=== PATIENT | female | born 1970 | race Caucasian/White ===

== ENCOUNTER 2022-11-04 15:38 | Inpatient (IN) | payer OTHER, MEDICAID, SELFPAY ==
[2022-11-04] VITALS (15 sets, daily range): BP systolic 95–160; BP diastolic 54–91; PULSE 76–86; RESP 16–34; TEMP 37.3; O2SAT 95–100; BMI 43.8
--- NOTE | 2022-11-04 | DI.RAD.S_ITS ---
PROCEDURE: XR FEMUR LT MIN 2V INDICATIONS: left thigh swelling and pain TECHNIQUE: 2 views of the femur were acquired. COMPARISON: [facility], CR, XR KNEE 4+ VIEWS BILATERAL, 12/22/2018, 11:48. [facility], CR, XR TIBIA FIBULA LT 2V, 11/04/2022, 16:32. FINDINGS: Bones: No fractures or dislocations. No suspicious bony lesions. Severe degenerative joint disease in left knee. Soft tissues: No suspicious soft tissue calcifications or masses. Small knee joint effusion. IMPRESSION: 1. No acute osseous abnormalities. 2. Severe degenerative joint disease in left knee and small knee joint effusion. Dictated by: Argelia Ruffin M.D. on 11/04/2022 at 16:41 Approved by: Argelia Ruffin M.D. on 11/04/2022 at 16:46
--- NOTE | 2022-11-04 16:24 | DI.RAD.S_ITS ---
PROCEDURE: XR TIBIA FIBULA LT 2V INDICATIONS: infection? TECHNIQUE: 2 views of the tibia and fibula were acquired. COMPARISON: [facility], CR, XR FEMUR LT MIN 2V, 11/04/2022, 16:32. [facility], CR, XR KNEE 4+ VIEWS BILATERAL, 12/22/2018, 11:48. FINDINGS: Bones: No fractures or dislocations. No suspicious bony lesions. Severe knee joint degeneration. Soft tissues: No suspicious soft tissue calcifications or masses. Soft tissue swelling. IMPRESSION: No acute osseous abnormalities. Dictated by: Argelia Ruffin M.D. on 11/04/2022 at 16:46 Approved by: Argelia Ruffin M.D. on 11/04/2022 at 16:47
[2022-11-04 17:35] LABS: Add Manual Diff / Slide Review NO; Basophils Absolute Auto 0 /uL (0-100); Basophils Percent Auto 0.3 % (0-2); Eosinophils Absolute Auto 0 /uL (0-450); Eosinophils Percent Auto 0.1 % (2-4); Hematocrit 35.1 % (36-46); INR 1.1 (0.9-1.3); Lymphocytes Absolute Auto 400 /uL (1100-4500); Lymphocytes Percent Auto 6.5 % (25-40); Mean Corpuscular HGB Conc 34.3 % (30-36); Mean Corpuscular Hemoglobin 35.3 PG (26-34); Mean Corpuscular Volume 102.8 fL (80-100); Monocytes Absolute Auto 400 /uL (0-900); Monocytes Percent Auto 6.5 % (3-14); Neutrophils Absolute Auto 4900 /uL (1500-7000); Neutrophils Percent Auto 86.6 % (50-75); Platelet Count 111 X10^3/uL (150-400); Prothrombin Time 12.9 SECONDS (10.1-12.7); Red Blood Cell Count 3.41 X10^6/uL (4.0-5.2); White Blood Cell Count 5.7 X10^3/uL (4.5-11.0)
[2022-11-04 17:38] LABS: PTT Partial Thromboplastin Tim 32 SECONDS (26-36)
[2022-11-04 17:40] LABS: Alanine Aminotransferase 42 IU/L (<35); Albumin 3.7 g/dL (3.5-5.0); Albumin Globulin Ratio 0.8 (1.0-2.8); Alkaline Phosphatase 165 U/L (38-126); Aspartate Aminotransferase 66 IU/L (14-36); BUN Creatinine Ratio 22.1 (6-22); Bilirubin Total 2.1 mg/dL (0.2-1.3); Blood Urea Nitrogen 17 mg/dL (7-17); Calcium 8.4 mg/dL (8.4-10.2); Carbon Dioxide 25 mmol/L (22-32); Chloride 92 mmol/L (98-107); Estimated Glomerular Filt Rate > 60 mL/min (>60); Globulin 4.5 g/dL (1.7-4.1); Glucose 302 mg/dL (70-100); HEMOLYSIS < 15 (0-50); Lipase 265 U/L (23-300); Potassium 2.9 mmol/L (3.4-5.1); Sodium 129 mmol/L (137-145); Total Protein 8.2 g/dL (6.3-8.2)
[2022-11-04 17:41] LABS: Lactate (Lactic Acid) 1.6 mmol/L (0.7-2.1)
[2022-11-04] MEDS: ONDANSETRON 4 MG/2 ML INJ IV ×2 (17:41→22:54)
[2022-11-04] MEDS: MORPHINE 4 MG/ML INJ IV (17:41)
--- NOTE | 2022-11-04 18:13 | ED_ITS ---
HPI - Skin/Abscess/Foreign Bdy General Chief complaint: Skin/Abscess/Foreign Body Stated complaint: Swelling, open wound, L leg Time Seen by Provider: 11/04/22 18:01 Source: patient Mode of arrival: Wheelchair History of Present Illness HPI narrative: Patient is a 52-year-old female type 2 diabetes, hypothyroid, rate is, fibromyalgia, chronic back pain presenting today with 3 days of not feeling well and left leg erythema. She has not really been feeling great with decreased appetite for last couple of days. She has chronic wound on her left leg however last night she started noticing some redness today it is extremely painful swo llen red from [id number] all the way up into the thigh. It does not involve the crying. She denies any chest pain, or palpitations. She is a chronic cough from COVID but not coughing anything up it is not any worse. She denies any shortness of breath. Related Data Home Medications Medication Instructions Recorded Confirmed amlodipine 10 mg tablet 10 mg PO DAILY 11/04/22 11/04/22 glimepiride 4 mg tablet 4 mg PO DAILY 11/04/22 11/04/22 metoprolol tartrate 25 mg tablet 25 mg PO BID 11/04/22 11/04/22 Allergies Allergy/AdvReac Type Severity Reaction Status Date / Time No Known Drug Allergies Allergy Verified 11/04/22 17:35 Review of Systems Review of Systems ROS Unobtainable: All systems reviewed & are unremarkable except as noted in HPI and below Patient History Medical History Alcoholism Diabetes type 2, uncontrolled Fibromyalgia Osteoarthritis Surgical History History of bunionectomy History of History of hand surgery Family History Mother Ischemia Alcoholism Aunt Diabetes mellitus Grandfather Stroke Grandmother Dementia Social History household members: significant other and children Smoking Status: Current some day smoker alcohol intake: current Smoking Status: Never smoker alcohol intake frequency: 3 or more drinks per day Substance Use Type: marijuana Exam Initial Vital Signs Initial Vital Signs: Vital Signs Temperature 99.1 F 11/04/22 16:08 Pulse Rate 86 11/04/22 16:08 Respiratory Rate 16 11/04/22 16:08 Blood Pressure 160/91 H 11/04/22 16:08 Pulse Oximetry 99 11/04/22 16:08 Oxygen Delivery Method Room Air 11/04/22 16:08 GENERAL: Alert 52-year-old female appears in pain HEENT: Head atraumatic,EOMI, pupils reactive, face symmetric, [moist] mucous membranes CARDIOVASCULAR: Regular rate and rhythm without murmurs, rubs or gallops. RESPIRATORY: Breath sounds equal bilaterally, no wheezes rales or rhonchi. ABDOMEN: Soft, nontender. Normoactive bowel sounds all 4 quadrants. No guarding or rebound. EXTREMITIES: Normal range of motion, no clubbing or edema. Neurovascularly intact NEUROLOGICAL: Alert and oriented x4. SKIN: Left leg chronic wound dry and scaly however significant erythema over knee and thigh does not involve groin Course Orders Ordered: ED Orders 11/04/22 20:10 COVID19 -Nasal RAPID Stat Acetaminophen (Acetaminophen 325 Mg Tablet) 650 mg PO Q6H PRN PRN Reason: Fever/Mild Pain (1-3) Dextrose (Dextrose 50 % In Water 25 Gm/50 Ml Syringe) 25 gm IV PRN PRN PRN Reason: Hypoglycemia Folic Acid (Folic Acid 1 Mg Tablet) 1 mg PO DAILY [facility] Heparin Sodium (Porcine) (Heparin 5,000 Unit/Ml Vial) 5,000 unit SUBCUT BID KALEB Cefepime HCl 1 gm/ Sodium (Chloride) 100 mls @ 200 mls/hr IV Q12H KALEB Vancomycin HCl/Dextrose (Vancomycin) 2,000 mg in 400 mls @ 200 mls/hr IV Q12H KALEB Thiamine HCl 100 mg/ Sodium (Chloride) 101 mls @ 404 mls/hr IV DAILY [facility] Insulin Human Lispro (Insulin Lispro 100 Unit/Ml 3ml Vial) 0 unit SUBCUT ACHS KALEB; Protocol Lorazepam (Lorazepam 2 Mg/Ml Inj) 0 mg IV CIWAPRN PRN; Protocol PRN Reason: Alcohol Withdrawal Lorazepam (Lorazepam 1 Mg Tablet) 0 mg PO CIWAPRN PRN; Protocol PRN Reason: Alcohol Withdrawal Metoprolol Tartrate (Metoprolol Ir 25 Mg Tablet) 25 mg PO BID [facility] Multivitamins (Multivitamin 1 Tablet) 1 tab PO DAILY [facility] Nystatin (Nystatin Powder 15gm) 1 applic TOP BID PRN PRN Reason: Rash Ondansetron HCl (Ondansetron 4 Mg/2 Ml Inj) 4 mg IV Q8HR PRN PRN Reason: Nausea And Vomiting Last Admin: 11/04/22 22:54 Dose: 4 mg Documented By: ORLANDO Oxycodone HCl (Oxycodone Ir 5 Mg Tablet) 5 mg PO Q4HR PRN PRN Reason: Pain, Moderate (4-6) Last Admin: 11/04/22 22:51 Dose: 5 mg Documented By: ORLANDO Potassium Chloride (Potassium Chloride 20 Meq Tab) 40 meq PO TIDWM [facility] Vancomycin HCl (Vancomycin Per Pharmacy) 1 request MISC NOW ONE Stop: 11/04/22 21:56 Discontinued Medications Hydromorphone HCl (Hydromorphone 1 Mg Inj) 1 mg IV NOW ONE Stop: 11/04/22 18:23 Last Admin: 11/04/22 18:40 Dose: 1 mg Documented By: POLO Sodium Chloride (Normal Saline 0.9%) 1,000 mls @ 1,000 mls/hr IV BOLUS ONE Stop: 11/04/22 17:20 Cefepime HCl 2 gm/ Sodium (Chloride) 100 mls @ 200 mls/hr IV NOW ONE Stop: 11/04/22 18:23 Last Infusion: 11/04/22 19:57 Dose: 0 mls/hr Documented By: Admin: 11/04/22 18:41 Dose: 200 mls/hr Documented By: POLO Vancomycin HCl/Dextrose (Vancomycin) 2,000 mg in 400 mls @ 200 mls/hr IV NOW ONE Stop: 11/04/22 20:24 Last Infusion: 11/04/22 22:00 Dose: 200 mls/hr Documented By: Admin: 11/04/22 19:53 Dose: 200 mls/hr Documented By: SIVAN Sodium Chloride (Normal Saline 0.9%) 1,000 mls @ 150 mls/hr IV CONT KALEB Last Infusion: 11/04/22 22:00 Dose: 150 mls/hr Documented By: Admin: 11/04/22 20:40 Dose: 150 mls/hr Documented By: SIVAN Ketorolac Tromethamine (Ketorolac 30 Mg/Ml Vial) 15 mg IV NOW ONE Stop: 11/04/22 18:23 Last Admin: 11/04/22 18:40 Dose: 15 mg Documented By: NR Morphine Sulfate (Morphine 4 Mg/Ml Inj) 4 mg IV NOW ONE Stop: 11/04/22 17:36 Last Admin: 11/04/22 17:41 Dose: 4 mg Documented By: NR Ondansetron HCl (Ondansetron 4 Mg Odt) 4 mg SL NOW PRN PRN Reason: Nausea And Vomiting Ondansetron HCl (Ondansetron 4 Mg/2 Ml Inj) 4 mg IV NOW PRN PRN Reason: Nausea And Vomiting Last Admin: 11/04/22 17:41 Dose: 4 mg Documented By: NR Potassium Chloride (Potassium Chloride 20 Meq Tab) 40 meq PO NOW ONE Stop: 11/04/22 21:56 Last Admin: 11/04/22 22:50 Dose: 40 meq Documented By: ORLANDO Vital Signs Vital signs: Vital Signs - 8 hr 11/04/22 16:08 Temperature 99.1 F Pulse Rate 86 Respiratory Rate 16 Blood Pressure 160/91 H Pulse Oximetry 99 Oxygen Delivery Method Room Air MDM - Skin/Abscess/Foreign Bdy Lab Data 11/04/22 17:18 11/04/22 17:18 Labs: Lab Results 11/04/22 11/04/22 11/04/22 Range/Units 17:18 17:18 17:18 WBC 5.7 (4.5-11.0) X10^3/uL RBC 3.41 L (4.0-5.2) X10^6/uL Hgb 12.0 (12.0-16.0) g/dL Hct 35.1 L (36-46) % MCV 102.8 H (80-100) fL MCH 35.3 H (26-34) PG MCHC 34.3 (30-36) % RDW 13.0 (11.6-14.8) % Plt Count 111 L (150-400) X10^3/uL Neut % (Auto) 86.6 H (50-75) % Lymph % (Auto) 6.5 L (25-40) % Carter % (Auto) 6.5 (3-14) % Eos % (Auto) 0.1 L (2-4) % Baso % (Auto) 0.3 (0-2) % Neut # (Auto) 4900 (4277-9486) /uL Lymph # (Auto) 400 L (0522-9568) /uL Carter # (Auto) 400 (0-900) /uL Eos # (Auto) 0 (0-450) /uL Baso # (Auto) 0 (0-100) /uL PT 12.9 H (10.1-12.7) SECONDS INR 1.1 (0.9-1.3) APTT 32 (26-36) SECONDS Sodium 129 L (137-145) mmol/L Potassium 2.9 L (3.4-5.1) mmol/L Chloride 92 L (98-107) mmol/L Carbon Dioxide 25 (22-32) mmol/L BUN 17 (7-17) mg/dL Creatinine 0.77 (0.52-1.04) mg/dL Estimated GFR > 60 (>60) mL/min BUN/Creatinine Ratio 22.1 H (6-22) Glucose 302 H (70-100) mg/dL Lactate (0.7-2.1) mmol/L Calcium 8.4 (8.4-10.2) mg/dL Total Bilirubin 2.1 H (0.2-1.3) mg/dL AST 66 H (14-36) IU/L ALT 42 H (<35) IU/L Alkaline Phosphatase 165 H (38-126) U/L Total Protein 8.2 (6.3-8.2) g/dL Albumin 3.7 (3.5-5.0) g/dL Globulin 4.5 H (1.7-4.1) g/dL Albumin/Globulin Ratio 0.8 L (1.0-2.8) Lipase 265 (23-300) U/L Procalcitonin 1.90 H (<0.5) ng/mL SARS-CoV-2 (PCR) (Negative) 11/04/22 11/04/22 Range/Units 17:18 20:10 WBC (4.5-11.0) X10^3/uL RBC (4.0-5.2) X10^6/uL Hgb (12.0-16.0) g/dL Hct (36-46) % MCV (80-100) fL MCH (26-34) PG MCHC (30-36) % RDW (11.6-14.8) % Plt Count (150-400) X10^3/uL Neut % (Auto) (50-75) % Lymph % (Auto) (25-40) % [place] % (Auto) (3-14) % Eos % (Auto) (2-4) % Baso % (Auto) (0-2) % Neut # (Auto) (2986-6259) /uL Lymph # (Auto) (0424-9629) /uL [place] # (Auto) (0-900) /uL Eos # (Auto) (0-450) /uL Baso # (Auto) (0-100) /uL PT (10.1-12.7) SECONDS INR (0.9-1.3) APTT (26-36) SECONDS Sodium (137-145) mmol/L Potassium (3.4-5.1) mmol/L Chloride (98-107) mmol/L Carbon Dioxide (22-32) mmol/L BUN (7-17) mg/dL Creatinine (0.52-1.04) mg/dL Estimated GFR (>60) mL/min BUN/Creatinine Ratio (6-22) Glucose (70-100) mg/dL Lactate 1.6 (0.7-2.1) mmol/L Calcium (8.4-10.2) mg/dL Total Bilirubin (0.2-1.3) mg/dL AST (14-36) IU/L ALT (<35) IU/L Alkaline Phosphatase (38-126) U/L Total Protein (6.3-8.2) g/dL Albumin (3.5-5.0) g/dL Globulin (1.7-4.1) g/dL Albumin/Globulin Ratio (1.0-2.8) Lipase (23-300) U/L Procalcitonin (<0.5) ng/mL SARS-CoV-2 (PCR) Negative (Negative) Imaging Data Extremity x-ray #1: Radiologist's Impression: PROCEDURE:? XR FEMUR LT MIN 2V ? INDICATIONS:? left thigh swelling and pain ? TECHNIQUE:? 2 views of the femur were acquired.? ? COMPARISON:? [facility], CR, XR KNEE 4+ VIEWS BILATERAL, 12/22/2018, 11:48.? [facility], CR, XR TIBIA FIBULA LT 2V, 11/04/2022, 16:32. ? FINDINGS:? ? Bones:? No fractures or dislocations.? No suspicious bony lesions.? Severe degenerative joint disease in left knee. ? Soft tissues:? No suspicious soft tissue calcifications or masses.? Small knee joint effusion. ? IMPRESSION:? ? 1. No acute osseous abnormalities. 2. Severe degenerative joint disease in left knee and small knee joint effusion.? ? Dictated by: Argelia Ruffin M.D. on 11/04/2022 at 16:41 ? ? Extremity x-ray #2: Radiologist's Impression: PROCEDURE:? XR TIBIA FIBULA LT 2V ? INDICATIONS:? infection? ? TECHNIQUE:? 2 views of the tibia and fibula were acquired.? ? COMPARISON:? [facility], CR, XR FEMUR LT MIN 2V, 11/04/2022, 16:32.? [facility], CR, XR KNEE 4+ VIEWS BILATERAL, 12/22/2018, 11:48. ? FINDINGS:? ? Bones:? No fractures or dislocations.? No suspicious bony lesions.? Severe knee joint degeneration. ? Soft tissues:? No suspicious soft tissue calcifications or masses.? Soft tissue swelling. ? IMPRESSION:? No acute osseous abnormalities. ? ? Dictated by: Argelia Ruffin M.D. on 11/04/2022 at 16:46 ?? CT lower extremity: Radiologist's Impression: PROCEDURE:? CT LE LT W CON ? INDICATIONS:? cellulitis ? TECHNIQUE:? After the administration of intravenous contrast, 3 mm axial sections acquired of the left lower extremity, with coronal and sagittal reformatted images. ? ? COMPARISON:? None. ? FINDINGS:? No destructive or lytic or erosive lesion identified in the left lower extremity to suggest osteomyelitis.? No soft tissue organized or rim enhancing fluid collection.? Moderate to large suprapatellar knee joint effusion.? No evidence of fracture or suspicious bone lesion.? Reticular edema throughout the subcutaneous fat of the distal left thigh and left lower leg. ? IMPRESSION:? ? Extensive lower extremity cellulitis which is circumferential below the level of the knee and predominantly anterior/lateral above the level of the knee.? Large s uprapatellar knee joint effusion without lipohemarthrosis to suggest fracture. ? No destructive or erosive or lytic osseous lesion to suggest osteomyelitis. ? No organized or rim enhancing fluid collection identified.? ? Left inguinal lymphadenopathy is presumably related.? ? Dictated by: Curtis Garcia M.D. on 11/04/2022 at 19:21 ? ? [facility] Narrative Medical decision making narrative: Patient 52-year-old diabetic with some chronic left leg wound presenting with new onset cellulitis of left leg. No leukocytosis, but there is elevated prolactin vitals are stable without signs of severe sepsis. There are reported lower blood pressures however nursing staff reports that the cord is twisted and it is not always accurate. Patient is in quite a bit of pain is given pain medication and antibiotics vancomycin and cefepime for cellulitis. CT is negative no evidence of necrotizing fasciitis. Dr. Arteaga Discharge Plan Departure Patient Disposition: Admitted As Inpatient Clinical Impression: Cellulitis Admit Date/Time: 11/04/22 20:56 Admit Provider: Soy Arteaga
--- NOTE | 2022-11-04 18:22 | DI.CT.S_ITS ---
PROCEDURE: CT LE LT W CON INDICATIONS: cellulitis TECHNIQUE: After the administration of intravenous contrast, 3 mm axial sections acquired of the left lower extremity, with coronal and sagittal reformatted images. COMPARISON: None. FINDINGS: No destructive or lytic or erosive lesion identified in the left lower extremity to suggest osteomyelitis. No soft tissue organized or rim enhancing fluid collection. Moderate to large suprapatellar knee joint effusion. No evidence of fracture or suspicious bone lesion. Reticular edema throughout the subcutaneous fat of the distal left thigh and left lower leg. IMPRESSION: Extensive lower extremity cellulitis which is circumferential below the level of the knee and predominantly anterior/lateral above the level of the knee. Large suprapatellar knee joint effusion without lipohemarthrosis to suggest fracture. No destructive or erosive or lytic osseous lesion to suggest osteomyelitis. No organized or rim enhancing fluid collection identified. Left inguinal lymphadenopathy is presumably related. Dictated by: Curtis Garcia M.D. on 11/04/2022 at 19:21 Approved by: Curtis Garcia M.D. on 11/04/2022 at 19:25
[2022-11-04] MEDS: KETOROLAC 30 MG/ML VIAL 15 MG IV (18:40)
[2022-11-04] MEDS: HYDROMORPHONE 1 MG INJ IV (18:40)
[2022-11-04] MEDS: CEFEPIME 2 GM in SODIUM CHLORIDE 0.9% 100 ML IV (18:41)
--- NOTE | 2022-11-04 19:36 | PC.NURSE ---
report received pt lying on left side aao x 3, left leg noted with an area to the lower leg noted scabbed over and the thigh noted red and painful, IV antibiotics infusing call light in reach
[2022-11-04] MEDS: VANCOMYCIN 2,000 MG/400 ML PIGGYBACK 200 MG IV (19:53)
[2022-11-04 20:31] LABS: COVID19 -Nasal RAPID Negative (Negative)
[2022-11-04] MEDS: SODIUM CHLORIDE 0.9% 1,000 ML 150 ML IV (20:40)
--- NOTE | 2022-11-04 21:48 | P.HP_ITS ---
History of Present Illness History of Present Illness Date Patient Seen: 11/04/22 Time Patient Seen: 23:00 Chief complaint: Swelling, open wound, L leg Narrative: Ms. Castellano is a 52W with PMH Type 2 diabetes, EtOH abuse, chronic pain who presents to the hospital with left leg redness. She notes she has a lower leg wound chronically for the last year, this is quite painful. She was diagnosed with cellulitis over a year ago at another hospital. The would appears brawny and scaly. Her left leg is chronically swollen. Over the last day she has noted feeling cold. She has a minimal appetite. She has quite tender erythema above the knee on the inside of the leg. This has been demarcated. In the ED workup was done, vitals notable for afebrile, heart rate in the 80s, o2 sats in the 90s. Labs notable for WBC 5.7, hgb 12.0, platelets 111. Na 129, k 2.9, creatinine 0.77. Bili 2.1, AST/ALT 66/42, alk phos 165. Procal 1.9. Lactate 1.6. Lower extremity CT showed lower extremity cellulitis. She was given antibiotics and fluids and admitted for further treatment. SH: She drinks multiple alcohol drinks a day Patient History Medical History Alcoholism Diabetes type 2, uncontrolled Fibromyalgia Osteoarthritis Surgical History History of bunionectomy History of History of hand surgery Family & Social History Family History Mother Ischemia Alcoholism Aunt Diabetes mellitus Grandfather Stroke Grandmother Dementia Safety & Behavioral: Feels Safe in Current Yes Environment Been Physically Hurt or No Threatened By a Person Tobacco & Substance use: Smoking Status Never smoker alcohol intake frequency 3 or more drinks per day Substance Use Type marijuana Meds Home Medications and Allergies Home Medications Medication Instructions Recorded Confirmed Type amlodipine 10 mg tablet 10 mg PO DAILY 11/04/22 11/04/22 History glimepiride 4 mg tablet 4 mg PO DAILY 11/04/22 11/04/22 History metoprolol tartrate 25 mg tablet 25 mg PO BID 11/04/22 11/04/22 History Allergies Allergy/AdvReac Type Severity Reaction Status Date / Time No Known Drug Allergies Allergy Verified 11/04/22 17:35 Review of Systems Review of Systems Narrative: 14 systems reviewed and negative aside from what is noted in HPI Exam Vital Signs (past 8 hours): - 11/04/22 16:08 11/04/22 17:43 11/04/22 17:44 Temperature 99.1 F Pulse Rate 86 83 Respiratory Rate 16 Blood Pressure 160/91 H 121/59 L Pulse Oximetry 99 100 Oxygen Delivery Method Room Air 11/04/22 17:44 11/04/22 17:45 11/04/22 17:45 Temperature Pulse Rate 84 83 Respiratory Rate Blood Pressure 118/56 L Pulse Oximetry 99 99 Oxygen Delivery Method 11/04/22 18:00 11/04/22 18:00 11/04/22 18:15 Temperature Pulse Rate 80 Respiratory Rate 34 H Blood Pressure 119/59 L 129/59 L Pulse Oximetry 99 Oxygen Delivery Method 11/04/22 18:15 11/04/22 18:30 11/04/22 18:30 Temperature Pulse Rate 82 81 Respiratory Rate 29 H 27 H Blood Pressure 117/57 L Pulse Oximetry 100 99 Oxygen Delivery Method 11/04/22 19:21 11/04/22 19:22 11/04/22 19:22 Temperature Pulse Rate 80 79 Respiratory Rate 22 26 H Blood Pressure 114/58 L Pulse Oximetry 98 97 Oxygen Delivery Method 11/04/22 19:30 11/04/22 19:30 11/04/22 19:45 Temperature Pulse Rate 80 Respiratory Rate 30 H Blood Pressure 102/55 L 102/56 L Pulse Oximetry 97 Oxygen Delivery Method 11/04/22 19:45 11/04/22 20:00 11/04/22 20:00 Temperature Pulse Rate 84 76 Respiratory Rate 23 21 Blood Pressure 95/54 L Pulse Oximetry 96 95 Oxygen Delivery Method 11/04/22 20:30 11/04/22 20:30 Temperature Pulse Rate 76 Respiratory Rate 24 Blood Pressure 111/54 L Pulse Oximetry 98 Oxygen Delivery Method Room Air Oxygen Delivery Method Room Air Narrative Exam Narrative: GEN: no acute distress HEENT: moist mucous membranes, PERRL NECK: trachea midline, no JVD CV: regular rate and rhythm, no murmurs PULM: clear bilaterally, no wheezes, rhonchi, rales ABD: soft, nontender, nondistended, no organomegaly, normal bowel sounds EXT: warm and well perfused, left leg with erythema in the upper leg that extends near the groin, the lower leg is brawny and scaly NEURO: awake, alert, oriented, with no focal deficits Objective Labs 11/04/22 17:18 11/04/22 17:18 Labs: Laboratory Results - last 24 hr 11/04/22 11/04/22 11/04/22 17:18 17:18 17:18 WBC 5.7 RBC 3.41 L Hgb 12.0 Hct 35.1 L MCV 102.8 H MCH 35.3 H MCHC 34.3 RDW 13.0 Plt Count 111 L Neut % (Auto) 86.6 H Lymph % (Auto) 6.5 L [place] % (Auto) 6.5 Eos % (Auto) 0.1 L Baso % (Auto) 0.3 Neut # (Auto) 4900 Lymph # (Auto) 400 L [place] # (Auto) 400 Eos # (Auto) 0 Baso # (Auto) 0 PT 12.9 H INR 1.1 APTT 32 Sodium 129 L Potassium 2.9 L Chloride 92 L Carbon Dioxide 25 BUN 17 Creatinine 0.77 Estimated GFR > 60 BUN/Creatinine Ratio 22.1 H Glucose 302 H Lactate Calcium 8.4 Total Bilirubin 2.1 H AST 66 H ALT 42 H Alkaline Phosphatase 165 H Total Protein 8.2 Albumin 3.7 Globulin 4.5 H Albumin/Globulin Ratio 0.8 L Lipase 265 Procalcitonin 1.90 H SARS-CoV-2 (PCR) 11/04/22 11/04/22 17:18 20:10 WBC RBC Hgb Hct MCV MCH MCHC RDW Plt Count Neut % (Auto) Lymph % (Auto) [place] % (Auto) Eos % (Auto) Baso % (Auto) Neut # (Auto) Lymph # (Auto) [place] # (Auto) Eos # (Auto) Baso # (Auto) PT INR APTT Sodium Potassium Chloride Carbon Dioxide BUN Creatinine Estimated GFR BUN/Creatinine Ratio Glucose Lactate 1.6 Calcium Total Bilirubin AST ALT Alkaline Phosphatase Total Protein Albumin Globulin Albumin/Globulin Ratio Lipase Procalcitonin SARS-CoV-2 (PCR) Negative Assessment & Plan Assessment & Plan narrative: 1. Cellulitis -patient not septic on admission -CT shows no evidence of gas on imaging -as she is diabetic start broadly with vancomycin and cefepime -deescalate antibiotics with improvement 2. Hyponatremia, hypokalemia -suspect secondary to illness and poor appetite vs etoh abuse -received IVF in ED, recheck sodium in AM -ordered for potassium TID, stop when potassium repleted 3. Transaminitis -etiology possible secondary to etoh abuse vs steatosis -trend lfts, if rising may need further workup as inpatient -otherwise will need follow up with PCP 4. Type 2 Diabetes not on insulin -hold oral meds -ordered for insulin sliding scale -check glucose achs 5. Hypertension -continue metoprolol -hold amlodipine for now, and continue if blood pressure rises 6. Chronic pain -tylenol and oxycodone prn 7. Alcohol abuse -feeling withdrawal symptoms on admission -place on CIWA protocol with ativan -ordered MVI, thiamine, folate 8. Chronic lower leg wound -would recommend she follow up with PCP and dermatology for further workup I have discussed the plan with the patient. I have discussed plan of care with ED physician and bedside nurse. I have reviewed the labs and xray and CT imaging. CODE: Full Proxy: Dennis Castellano, spouse Time Spent With Patient Critical Care time: I spent a total of [] minutes of critical care time on this patient's care today; this time is exclusive of procedural time. Quality MIPS - Meds 'Current medications' to include all prescriptions, [id number] products, herbals, cannabis/cannabidiol products, and vitamin/mineral/dietary (nutritional) supplements. I have utilized all available resources to obtain, update, or review the patient?s current medications. [If Yes, STOP here]: Yes
[2022-11-04] MEDS: POTASSIUM CHLORIDE 20 MEQ TAB 40 MEQ PO (22:50)
[2022-11-04] MEDS: OXYCODONE IR 5 MG TABLET PO (22:51)
--- NOTE | 2022-11-04 23:38 | PC.NURSE ---
Patient presents with new onset erythema and petechiae on LLE. Present on dorsal aspect of thigh above knee. Erythema continues around circumference of calf from knee down, fading as it gets to mid calf. [place]win on LLE has a long-standing large area of severely yellowed and thickened skin that has cracked and openly weeping areas. Patient noted to be picking at those areas frequently, educated on ceasing. Both feet are edematous and calloused. Patient reports prior bunionectomy on L great toe. Patient has reddened yeasty areas under both breasts and pannus. Both breasts and underarms and under-breasts have large reddened boils present from bad bra per patient report. None have any noteable pus or drainage visible.
[2022-11-05] VITALS (9 sets, daily range): BP systolic 110–142; BP diastolic 63–73; PULSE 74–82; RESP 16–22; TEMP 36.1–37.6; O2SAT 96–100
[2022-11-05] MEDS: OXYCODONE IR 5 MG TABLET PO ×4 (05:20→22:04)
[2022-11-05] MEDS: ACETAMINOPHEN 325 MG TABLET 650 MG PO ×2 (05:20→20:56)
[2022-11-05] MEDS: CEFEPIME 1 GM in SODIUM CHLORIDE 0.9% 100 ML IV (05:55)
[2022-11-05 06:27] LABS: Add Manual Diff / Slide Review NO; Basophils Absolute Auto 0 /uL (0-100); Basophils Percent Auto 0.5 % (0-2); Eosinophils Absolute Auto 0 /uL (0-450); Eosinophils Percent Auto 0.8 % (2-4); Hematocrit 32.6 % (36-46); Hemoglobin 11.3 g/dL (12.0-16.0); Lymphocytes Absolute Auto 500 /uL (1100-4500); Mean Corpuscular HGB Conc 34.6 % (30-36); Mean Corpuscular Hemoglobin 35.2 PG (26-34); Mean Corpuscular Volume 101.8 fL (80-100); Monocytes Absolute Auto 600 /uL (0-900); Monocytes Percent Auto 11.6 % (3-14); Neutrophils Absolute Auto 4200 /uL (1500-7000); Neutrophils Percent Auto 77.1 % (50-75); Platelet Count 103 X10^3/uL (150-400); Red Cell Distribution Width 13.5 % (11.6-14.8); White Blood Cell Count 5.4 X10^3/uL (4.5-11.0)
[2022-11-05 06:52] LABS: Alanine Aminotransferase 39 IU/L (<35); Albumin 3.3 g/dL (3.5-5.0); Albumin Globulin Ratio 0.8 (1.0-2.8); Alkaline Phosphatase 151 U/L (38-126); Aspartate Aminotransferase 62 IU/L (14-36); Bilirubin Total 1.8 mg/dL (0.2-1.3); Bilirubin Unconjugated 0.5 mg/dL (0.0-1.1); Globulin 4.1 g/dL (1.7-4.1); HEMOLYSIS 44 (0-50); Total Protein 7.4 g/dL (6.3-8.2)
[2022-11-05 06:58] LABS: BUN Creatinine Ratio 23.1 (6-22); Blood Urea Nitrogen 18 mg/dL (7-17); Calcium 8.3 mg/dL (8.4-10.2); Carbon Dioxide 21 mmol/L (22-32); Chloride 94 mmol/L (98-107); Estimated Glomerular Filt Rate > 60 mL/min (>60); Glucose 226 mg/dL (70-100); HEMOLYSIS < 15 (0-50); Potassium 3.3 mmol/L (3.4-5.1); Sodium 126 mmol/L (137-145)
--- NOTE | 2022-11-05 07:50 | P.PN_ITS ---
Exam Vital Signs (past 8 hours): - 11/05/22 01:50 11/05/22 02:00 11/05/22 06:24 Temperature 99.6 F 97.0 F L Pulse Rate 82 76 Respiratory Rate 20 20 Blood Pressure 121/63 123/64 Pulse Oximetry 97 97 97 Oxygen Delivery Method Room Air Oxygen Flow Rate 0 0 11/05/22 06:00 Temperature Pulse Rate Respiratory Rate Blood Pressure Pulse Oximetry 97 Oxygen Delivery Method Room Air Oxygen Flow Rate Oxygen Delivery Method Room Air Oxygen Flow Rate 0 Narrative Exam Narrative: GEN: no acute distress HEENT: moist mucous membranes, PERRL NECK: trachea midline, no JVD CV: regular rate and rhythm, no murmurs PULM: clear bilaterally, no wheezes, rhonchi, rales ABD: soft, nontender, nondistended, no organomegaly, normal bowel sounds EXT: warm and well perfused, left leg with erythema in the upper leg that extends near the groin, the lower leg is brawny and scaly NEURO: awake, alert, oriented, with no focal deficits Objective Labs 11/05/22 05:59 11/05/22 05:59 Labs: Laboratory Results - last 24 hr 11/04/22 11/04/22 11/04/22 17:18 17:18 17:18 WBC 5.7 RBC 3.41 L Hgb 12.0 Hct 35.1 L MCV 102.8 H MCH 35.3 H MCHC 34.3 RDW 13.0 Plt Count 111 L Neut % (Auto) 86.6 H Lymph % (Auto) 6.5 L [place] % (Auto) 6.5 Eos % (Auto) 0.1 L Baso % (Auto) 0.3 Neut # (Auto) 4900 Lymph # (Auto) 400 L [place] # (Auto) 400 Eos # (Auto) 0 Baso # (Auto) 0 PT 12.9 H INR 1.1 APTT 32 Sodium 129 L Potassium 2.9 L Chloride 92 L Carbon Dioxide 25 BUN 17 Creatinine 0.77 Estimated GFR > 60 BUN/Creatinine Ratio 22.1 H Glucose 302 H Lactate Calcium 8.4 Total Bilirubin 2.1 H Conjugated Bilirubin Unconjugated Bilirubin AST 66 H ALT 42 H Alkaline Phosphatase 165 H Total Protein 8.2 Albumin 3.7 Globulin 4.5 H Albumin/Globulin Ratio 0.8 L Lipase 265 Procalcitonin 1.90 H SARS-CoV-2 (PCR) 11/04/22 11/04/22 11/05/22 17:18 20:10 05:59 WBC 5.4 RBC 3.20 L Hgb 11.3 L Hct 32.6 L MCV 101.8 H MCH 35.2 H MCHC 34.6 RDW 13.5 Plt Count 103 L Neut % (Auto) 77.1 H Lymph % (Auto) 10.0 L [place] % (Auto) 11.6 Eos % (Auto) 0.8 L Baso % (Auto) 0.5 Neut # (Auto) 4200 Lymph # (Auto) 500 L [place] # (Auto) 600 Eos # (Auto) 0 Baso # (Auto) 0 PT INR APTT Sodium Potassium Chloride Carbon Dioxide BUN Creatinine Estimated GFR BUN/Creatinine Ratio Glucose Lactate 1.6 Calcium Total Bilirubin Conjugated Bilirubin Unconjugated Bilirubin AST ALT Alkaline Phosphatase Total Protein Albumin Globulin Albumin/Globulin Ratio Lipase Procalcitonin SARS-CoV-2 (PCR) Negative 11/05/22 11/05/22 05:59 05:59 WBC RBC Hgb Hct MCV MCH MCHC RDW Plt Count Neut % (Auto) Lymph % (Auto) [place] % (Auto) Eos % (Auto) Baso % (Auto) Neut # (Auto) Lymph # (Auto) [place] # (Auto) Eos # (Auto) Baso # (Auto) PT INR APTT Sodium 126 L Potassium 3.3 L Chloride 94 L Carbon Dioxide 21 L BUN 18 H Creatinine 0.78 Estimated GFR > 60 BUN/Creatinine Ratio 23.1 H Glucose 226 H Lactate Calcium 8.3 L Total Bilirubin 1.8 H Conjugated Bilirubin 0.0 Unconjugated Bilirubin 0.5 AST 62 H ALT 39 H Alkaline Phosphatase 151 H Total Protein 7.4 Albumin 3.3 L Globulin 4.1 Albumin/Globulin Ratio 0.8 L Lipase Procalcitonin SARS-CoV-2 (PCR) [facility] Medical History Alcoholism Diabetes type 2, uncontrolled Fibromyalgia Osteoarthritis Surgical History History of bunionectomy History of History of hand surgery Family History Mother Ischemia Alcoholism Aunt Diabetes mellitus Grandfather Stroke Grandmother Dementia Social History household members: significant other and children Smoking Status: Current some day smoker alcohol intake: current Assessment & Plan Assessment & Plan narrative: 1. Cellulitis -patient not septic on admission -CT shows no evidence of gas on imaging -as she is diabetic start broadly with vancomycin and cefepime -deescalate antibiotics with improvement 2. Hyponatremia, hypokalemia -suspect secondary to illness and poor appetite vs etoh abuse -received IVF in ED, recheck sodium in AM -ordered for potassium TID, stop when potassium repleted 3. Transaminitis -etiology possible secondary to etoh abuse vs steatosis -trend lfts, if rising may need further workup as inpatient -otherwise will need follow up with PCP 4. Type 2 Diabetes not on insulin -hold oral meds -ordered for insulin sliding scale -check glucose achs 5. Hypertension -continue metoprolol -hold amlodipine for now, and continue if blood pressure rises 6. Chronic pain -tylenol and oxycodone prn 7. Alcohol abuse -feeling withdrawal symptoms on admission -place on CIWA protocol with ativan -ordered MVI, thiamine, folate 8. Chronic lower leg wound -would recommend she follow up with PCP and dermatology for further workup I have discussed the plan with the patient. I have discussed plan of care with ED physician and bedside nurse. I have reviewed the labs and xray and CT imaging. CODE: Full Proxy: Dennis Castellano, spouse Time Spent With Patient Critical Care time: I spent a total of [] minutes of critical care time on this patient's care today; this time is exclusive of procedural time. Quality VTE Deep Vein Thrombosis/Pulmonary Embolism Present on Admission: No
[2022-11-05 08:05] LABS: Magnesium 1.5 mg/dL (1.6-2.3)
[2022-11-05] MEDS: POTASSIUM CHLORIDE 20 MEQ TAB 40 MEQ PO ×3 (08:05→17:09)
[2022-11-05] MEDS: FOLIC ACID 1 MG TABLET PO (08:05)
[2022-11-05] MEDS: MULTIVITAMIN 1 TABLET 1 TAB PO (08:05)
[2022-11-05] MEDS: METOPROLOL IR 25 MG TABLET PO ×2 (08:06→20:57)
[2022-11-05] MEDS: HEPARIN 5,000 UNIT/ML VIAL 5000 UNIT SUBCUT (08:06)
[2022-11-05] MEDS: VANCOMYCIN 1,250 MG/250 ML PIGGYBACK 250 MG IV ×3 (08:06→23:11)
[2022-11-05] MEDS: INSULIN LISPRO 100 UNIT/ML 3ML VIAL SUBCUT ×4 (08:07→20:56)
[2022-11-05] MEDS: INSULIN GLARGINE 100 UNIT/ML 3ML PEN 15 UNIT SUBCUT (08:10)
--- NOTE | 2022-11-05 08:51 | CM.DANOTE ---
DCP: Case received, EMR reviewed and met with patient. Introduced self and role. Was able to obtain information regarding patient's baseline health. DCP assessment completed with information currently available. Patient is a 52 year old female who admitted yesterday evening to the care of the hospitalist team. PCP: Dr. Iyer. Payer: confirmed: [facility] [employer]. Patient came to the hospital via private vehicle secondary to having 3 days of not feeling well, and left leg erythema. Notes indicate that patient had decreased appetite for the last couple of days. Patient has history of type 2 diabetes, ETOH abuse, chronic lower leg wound. Patient was diagnosed with cellulitis, hyponatremia, hypokalemia, transaminitis. Met with patient in her room. She was sitting up in bed having breakfast, left leg exposed, noted redness, peeling to the extremity and scaly. Patient is alert and oriented, and resides in [place] with spouse, Dennis. She has a daughter about 7, who recently went back to school. Patient is independent, she is employed at the [employer]. She indicated that she is the only one working in her household, her spouse is currently unemployed, had been in a recent accident. Confirmed home health would not work for her, since she is not home bound, but is interested in going to outpatient wound clinc, preferably at the wound clinic in [facility]. Asked her about her alcohol consumption, she indicated that she was drinking for chronic pain, but will give it up. P: DCP to continue to follow. Plan is home when stable, may pursue an appointment at the wound clinic in [place] at [facility]. Noni Ronquillo RN/[employer]ant [employer] Qualified Discharge Planning/Care Management CM Discharge Assessment Start: 11/05/22 08:48 Freq: Status: Active Protocol: Document 11/05/22 08:49 (Rec: 11/05/22 08:51 [id number]) Discharge Planning Assessment Assigned [employer] Noni Ronquillo RN/Combatant Diver Qualified Advance Directives? No History Provided By Patient,Medical Record Prior Living Arrangements House Household Members significant other,children Type of transporation used prior to Drives own vehicle admit Independent with ADL's Yes Is patient alert and oriented? Yes Caregiver for Another Yes: Has a 7 year old Comment Wounds, alcohol use Discharge Plan Home Transportation Arrangement Spouse Referrals Initiated Other Additional Comment May consider having patient go over to wound clinic at [facility] Whiteboard Updated in Patient Room with Yes name and ext. # of [employer] Review Status In Process Next Review Type Continued Stay Review
[2022-11-05] MEDS: THIAMINE 100 MG in SODIUM CHLORIDE 0.9% 100 ML 404 MG IV (09:25)
[2022-11-05] MEDS: MAGNESIUM SULFATE 4 GM/100 ML PIGGYBACK IV (09:40)
[2022-11-05] MEDS: NYSTATIN POWDER 15GM 1 APPLIC TOP (10:00)
[2022-11-05 12:31] LABS: Hemoglobin A1C% w Est Avg Glu 9.7 % (4.0-6.0)
--- NOTE | 2022-11-05 13:53 | P.PN_ITS ---
Subjective Subjective Date Patient Seen: 11/05/22 Interval history: 52W with PMH Type 2 diabetes, EtOH abuse,?chronic pain admitted due to severe left lower extremity cellulitis. Patient complains of left leg pain, both chronic and acute from cellulitis. She states appearance of leg is the same. She is on vancomycin and cefepime, increase cefepime dose to 2 g q.12 hours today. Exam Vital Signs (past 8 hours): - 11/05/22 06:24 11/05/22 06:00 11/05/22 07:47 Temperature 97.0 F L Pulse Rate 76 Respiratory Rate 20 Blood Pressure 123/64 Pulse Oximetry 97 97 97 Oxygen Delivery Method Room Air Room Air Oxygen Flow Rate 0 0 11/05/22 10:00 11/05/22 11:00 Temperature 97.1 F L Pulse Rate 76 Respiratory Rate 16 Blood Pressure 120/67 Pulse Oximetry 99 96 Oxygen Delivery Method Room Air Oxygen Flow Rate 0 Oxygen Delivery Method Room Air Oxygen Flow Rate 0 Narrative Exam Narrative: General: Alert and cooperative Lungs: Breathing nonlabored Extremities: There is significant macular erythema of left thigh extending to the upper calf, leg itself is diffusely swollen including the foot, knee is swollen without appearance of a septic arthritis, there is chronic scaly venous stasis changes and superficial wounds of the lower choudhary Neuro: Normal affect, normal speech, not anxious Objective Labs 11/05/22 05:59 11/05/22 05:59 Labs: Laboratory Results - last 24 hr 11/04/22 11/04/22 11/04/22 17:18 17:18 17:18 WBC 5.7 RBC 3.41 L Hgb 12.0 Hct 35.1 L MCV 102.8 H MCH 35.3 H MCHC 34.3 RDW 13.0 Plt Count 111 L Neut % (Auto) 86.6 H Lymph % (Auto) 6.5 L [place] % (Auto) 6.5 Eos % (Auto) 0.1 L Baso % (Auto) 0.3 Neut # (Auto) 4900 Lymph # (Auto) 400 L [place] # (Auto) 400 Eos # (Auto) 0 Baso # (Auto) 0 PT 12.9 H INR 1.1 APTT 32 Sodium 129 L Potassium 2.9 L Chloride 92 L Carbon Dioxide 25 BUN 17 Creatinine 0.77 Estimated GFR > 60 BUN/Creatinine Ratio 22.1 H Glucose 302 H Hemoglobin A1c Lactate Calcium 8.4 Magnesium Total Bilirubin 2.1 H Conjugated Bilirubin Unconjugated Bilirubin AST 66 H ALT 42 H Alkaline Phosphatase 165 H Total Protein 8.2 Albumin 3.7 Globulin 4.5 H Albumin/Globulin Ratio 0.8 L Lipase 265 Procalcitonin 1.90 H SARS-CoV-2 (PCR) 11/04/22 11/04/22 11/05/22 17:18 20:10 05:59 WBC 5.4 RBC 3.20 L Hgb 11.3 L Hct 32.6 L MCV 101.8 H MCH 35.2 H MCHC 34.6 RDW 13.5 Plt Count 103 L Neut % (Auto) 77.1 H Lymph % (Auto) 10.0 L [place] % (Auto) 11.6 Eos % (Auto) 0.8 L Baso % (Auto) 0.5 Neut # (Auto) 4200 Lymph # (Auto) 500 L [place] # (Auto) 600 Eos # (Auto) 0 Baso # (Auto) 0 PT INR APTT Sodium Potassium Chloride Carbon Dioxide BUN Creatinine Estimated GFR BUN/Creatinine Ratio Glucose Hemoglobin A1c Lactate 1.6 Calcium Magnesium Total Bilirubin Conjugated Bilirubin Unconjugated Bilirubin AST ALT Alkaline Phosphatase Total Protein Albumin Globulin Albumin/Globulin Ratio Lipase Procalcitonin SARS-CoV-2 (PCR) Negative 11/05/22 11/05/22 11/05/22 05:59 05:59 05:59 WBC RBC Hgb Hct MCV MCH MCHC RDW Plt Count Neut % (Auto) Lymph % (Auto) [place] % (Auto) Eos % (Auto) Baso % (Auto) Neut # (Auto) Lymph # (Auto) [place] # (Auto) Eos # (Auto) Baso # (Auto) PT INR APTT Sodium 126 L Potassium 3.3 L Chloride 94 L Carbon Dioxide 21 L BUN 18 H Creatinine 0.78 Estimated GFR > 60 BUN/Creatinine Ratio 23.1 H Glucose 226 H Hemoglobin A1c Lactate Calcium 8.3 L Magnesium 1.5 L Total Bilirubin 1.8 H Conjugated Bilirubin 0.0 Unconjugated Bilirubin 0.5 AST 62 H ALT 39 H Alkaline Phosphatase 151 H Total Protein 7.4 Albumin 3.3 L Globulin 4.1 Albumin/Globulin Ratio 0.8 L Lipase Procalcitonin SARS-CoV-2 (PCR) 11/05/22 05:59 WBC RBC Hgb Hct MCV MCH MCHC RDW Plt Count Neut % (Auto) Lymph % (Auto) [place] % (Auto) Eos % (Auto) Baso % (Auto) Neut # (Auto) Lymph # (Auto) [place] # (Auto) Eos # (Auto) Baso # (Auto) PT INR APTT Sodium Potassium Chloride Carbon Dioxide BUN Creatinine Estimated GFR BUN/Creatinine Ratio Glucose Hemoglobin A1c 9.7 H Lactate Calcium Magnesium Total Bilirubin Conjugated Bilirubin Unconjugated Bilirubin AST ALT Alkaline Phosphatase Total Protein Albumin Globulin Albumin/Globulin Ratio Lipase Procalcitonin SARS-CoV-2 (PCR) [facility] Medical History Alcoholism Diabetes type 2, uncontrolled Fibromyalgia Osteoarthritis Surgical History History of bunionectomy History of History of hand surgery Family History Mother Ischemia Alcoholism Aunt Diabetes mellitus Grandfather Stroke Grandmother Dementia Social History household members: significant other and children Smoking Status: Current some day smoker alcohol intake: current Assessment & Plan Assessment & Plan narrative: 1. Cellulitis left lower extremity -patient not septic on admission -CT shows no evidence of gas on imaging -as she is diabetic start broadly with vancomycin and cefepime -deescalate antibiotics with improvement 2. Hyponatremia, hypokalemia, hypomagnesemia -suspect secondary to illness and poor appetite vs chronic etoh abuse -sodium not improved with NS -change fluid restriction to 1500 cc daily as patient unable to tolerate 1000 mL -continue oral potassium repletion as needed -IV Mag sulfate as needed -daily labs to trend 3. Transaminitis -etiology possible secondary to etoh abuse vs steatosis -trend lfts, if rising may need further workup as inpatient -otherwise will need follow up with PCP 4. Type 2 Diabetes not on insulin -hold oral meds -ordered for insulin sliding scale -Lantus 15 units daily -check A1c 5. Hypertension -continue metoprolol -hold amlodipine for now, and continue if blood pressure rises 6. Chronic pain -tylenol and oxycodone prn for acute left leg pain 7. Alcohol abuse -feeling withdrawal symptoms on admission -place on CIWA protocol with ativan, last CIWA 1 -ordered MVI, thiamine, folate 8. Chronic lower leg wound and venous stasis -recommend [facility] Time Spent With Patient Critical Care time: I spent a total of [] minutes of critical care time on this patient's care today; this time is exclusive of procedural time. Quality VTE Deep Vein Thrombosis/Pulmonary Embolism Present on Admission: No
--- NOTE | 2022-11-05 16:51 | DIET.CONS ---
Dietary Consultation Note Admission Date: 11/04/2022 20:56 Assessment: 52 y/o F admitted with cellulitis and chronic lower leg wound. RD consult for T2DM (A1c 9.7). Met with pt at bedside to discuss current dietary intake and DM. Pt notes being diagnosed with DM ~2 yrs ago and went to nutrition classes in [facility] ~1.5 yrs ago. Pt reports chronic 1 yr wound that has worsened. Diet recall: B: premier protein shake OR breakfast sandwich. L: occasionally eats lunch (sometimes protein shake). D: spaghetti OR protein (chicken, steak, salmon, shrimp) with vegetable (brocc, cauliflower) or Caesar salad. S: snacks include nuts or fruit (blueberries). Fluid: ~24 oz water/day. Pt reports not adding any salt to meals, does not drink soda or juice. ETOH: drinks beer to manage pain and sleep. Barriers: pt reports SNAP benefits have dramatically decreased from $700/mo to $200/mo, one vehicle (truck) - gas cost too much. Ht: 170.18 cm Wt: 123.3 kg BMI: 43.8 Last BM: 11/05/22 (11/05/22 11:21) MNA: 14 Chava Score: 23 Diet: 11/04/22 Breakfast Carbohydrate Consistent Diet Diet Modifications: fluid restriction 1.5L per day Carbohydrate level: Medium (3 CHO) Bedtime snack: Yes Labs: RBC 3.20 X10^6/uL (4.0-5.2) L 11/05/22 05:59 Hgb 11.3 g/dL (12.0-16.0) L 11/05/22 05:59 Hct 32.6 % (36-46) L 11/05/22 05:59 Creatinine 0.78 mg/dL (0.52-1.04) 11/05/22 05:59 Hemoglobin A1c 9.7 % (4.0-6.0) H 11/05/22 05:59 Lactate 1.6 mmol/L (0.7-2.1) 11/04/22 17:18 Nutrition Diagnosis: altered nutrition related laboratory values (A1c, glucose) r/t endocrine dysfunction aeb A1c 9.7%, glucose >225 c admission for cellulitis, T2DM diagnosis 2 yrs ago, food insecurity, high ETOH intake, diet recall suggesting high intakes of CHO at dinner and sometimes other meals. Interventions: 1. Educated pt on CHO counting using handout. 2. Recc 15-30 g CHO per snack, 30-45 g CHO per meal and pair with protein for T2DM. 3. Educated pt on vitamins and minerals to support wound healing and provided handout with food sources of each. 4. Offered pt ONS supplement to support protein needs but pt would rather use her fluid allowance daily on ice water at this time. Focus on high nutrient meal options. Monitoring/Evaluations: consult prn. Electronically Signed by: Elissa Beltran 11/05/22 16:[address] [id number]
[2022-11-05] MEDS: CEFEPIME 2 GM in SODIUM CHLORIDE 0.9% 100 ML IV (17:09)
[2022-11-05] MEDS: ENOXAPARIN 40 MG/0.4 ML SYRINGE SUBCUT (20:56)
[2022-11-06] MEDS: CEFEPIME 2 GM in SODIUM CHLORIDE 0.9% 100 ML IV ×2 (06:12→19:04)
[2022-11-06 07:07] LABS: Add Manual Diff / Slide Review NO; Basophils Absolute Auto 0 /uL (0-100); Basophils Percent Auto 0.4 % (0-2); Eosinophils Absolute Auto 100 /uL (0-450); Eosinophils Percent Auto 1.5 % (2-4); Hematocrit 32.3 % (36-46); Hemoglobin 11.1 g/dL (12.0-16.0); Lymphocytes Absolute Auto 600 /uL (1100-4500); Mean Corpuscular HGB Conc 34.4 % (30-36); Mean Corpuscular Hemoglobin 34.8 PG (26-34); Mean Corpuscular Volume 101.4 fL (80-100); Monocytes Absolute Auto 600 /uL (0-900); Monocytes Percent Auto 12.5 % (3-14); Neutrophils Absolute Auto 3200 /uL (1500-7000); Neutrophils Percent Auto 71.6 % (50-75); Platelet Count 104 X10^3/uL (150-400); Red Blood Cell Count 3.18 X10^6/uL (4.0-5.2); Red Cell Distribution Width 12.9 % (11.6-14.8); White Blood Cell Count 4.5 X10^3/uL (4.5-11.0)
--- NOTE | 2022-11-06 07:20 | PM.PN.1 ---
Subjective Subjective Interval history: Exam Vital Signs (past 8 hours): Oxygen Delivery Method Room Air Oxygen Flow Rate 0 Narrative Exam Narrative: General: Alert and cooperative Lungs: Breathing nonlabored Extremities: There is significant macular erythema of left thigh extending to the upper calf, leg itself is diffusely swollen including the foot, knee is swollen without appearance of a septic arthritis, there is chronic scaly venous stasis changes and superficial wounds of the lower choudhary Neuro: Normal affect, normal speech, not anxious Objective Labs 11/06/22 07:00 11/06/22 07:00 Labs: Laboratory Results - last 24 hr 11/05/22 11/05/22 11/06/22 05:59 05:59 07:00 WBC 4.5 RBC 3.18 L Hgb 11.1 L Hct 32.3 L MCV 101.4 H MCH 34.8 H MCHC 34.4 RDW 12.9 Plt Count 104 L Neut % (Auto) 71.6 Lymph % (Auto) 14.0 L [place] % (Auto) 12.5 Eos % (Auto) 1.5 L Baso % (Auto) 0.4 Neut # (Auto) 3200 Lymph # (Auto) 600 L [place] # (Auto) 600 Eos # (Auto) 100 Baso # (Auto) 0 Hemoglobin A1c 9.7 H Magnesium 1.5 L PFSH Medical History Alcoholism Diabetes type 2, uncontrolled Fibromyalgia Osteoarthritis Surgical History History of bunionectomy History of History of hand surgery Family History Mother Ischemia Alcoholism Aunt Diabetes mellitus Grandfather Stroke Grandmother Dementia Social History household members: significant other and children Smoking Status: Current some day smoker alcohol intake: current Assessment & Plan Assessment & Plan narrative: 1. Cellulitis left lower extremity -patient not septic on admission -CT shows no evidence of gas on imaging -as she is diabetic start broadly with vancomycin and cefepime -deescalate antibiotics with improvement 2. Hyponatremia, hypokalemia, hypomagnesemia -suspect secondary to illness and poor appetite vs chronic etoh abuse -sodium not improved with NS -change fluid restriction to 1500 cc daily as patient unable to tolerate 1000 mL -continue oral potassium repletion as needed -IV Mag sulfate as needed -daily labs to trend 3. Transaminitis -etiology possible secondary to etoh abuse vs steatosis -trend lfts, if rising may need further workup as inpatient -otherwise will need follow up with PCP 4. Type 2 Diabetes not on insulin -hold oral meds -ordered for insulin sliding scale -Lantus 15 units daily -check A1c 5. Hypertension -continue metoprolol -hold amlodipine for now, and continue if blood pressure rises 6. Chronic pain -tylenol and oxycodone prn for acute left leg pain 7. Alcohol abuse -feeling withdrawal symptoms on admission -place on CIWA protocol with ativan, last CIWA 1 -ordered MVI, thiamine, folate 8. Chronic lower leg wound and venous stasis -recommend follow-up at [facility] Quality VTE Deep Vein Thrombosis/Pulmonary Embolism Present on Admission: No
[2022-11-06 07:42] LABS: BUN Creatinine Ratio 24.6 (6-22); Blood Urea Nitrogen 17 mg/dL (7-17); Calcium 8.2 mg/dL (8.4-10.2); Carbon Dioxide 21 mmol/L (22-32); Chloride 102 mmol/L (98-107); Estimated Glomerular Filt Rate > 60 mL/min (>60); Glucose 195 mg/dL (70-100); HEMOLYSIS < 15 (0-50); Magnesium 1.9 mg/dL (1.6-2.3); Potassium 3.8 mmol/L (3.4-5.1); Sodium 131 mmol/L (137-145)
[2022-11-06 07:47] LABS: Vancomycin Trough 19.6 ug/mL (10-20)
[2022-11-06] MEDS: VANCOMYCIN 1,250 MG/250 ML PIGGYBACK 250 MG IV (08:10)
[2022-11-06] MEDS: VANCOMYCIN TROUGH 1 REQUEST MISC (08:10)
[2022-11-06] MEDS: INSULIN LISPRO 100 UNIT/ML 3ML VIAL SUBCUT ×4 (08:15→20:13)
[2022-11-06] MEDS: INSULIN GLARGINE 100 UNIT/ML 3ML PEN 15 UNIT SUBCUT (08:17)
[2022-11-06] MEDS: METOPROLOL IR 25 MG TABLET PO ×2 (08:27→20:12)
[2022-11-06] MEDS: FOLIC ACID 1 MG TABLET PO (08:27)
[2022-11-06] MEDS: ENOXAPARIN 40 MG/0.4 ML SYRINGE SUBCUT ×2 (08:27→20:12)
[2022-11-06] MEDS: MULTIVITAMIN 1 TABLET 1 TAB PO (08:28)
[2022-11-06] MEDS: THIAMINE 100 MG in SODIUM CHLORIDE 0.9% 100 ML 404 MG IV (08:28)
[2022-11-06] MEDS: OXYCODONE IR 5 MG TABLET PO ×3 (08:38→20:12)
[2022-11-06] MEDS: ACETAMINOPHEN 325 MG TABLET 650 MG PO (08:40)
[2022-11-06 09:00] VITALS: BP 158/79; PULSE 88; RESP 18; TEMP 36.6; O2SAT 98
--- NOTE | 2022-11-06 11:52 | P.PN_ITS ---
Subjective Subjective Date Patient Seen: 11/06/22 Interval history: 52W with PMH Type 2 diabetes, EtOH abuse,?chronic pain admitted due to severe left lower extremity cellulitis. Pt notes improvement in leg pain and appearance of cellulitis. Exam Vital Signs (past 8 hours): - 11/06/22 09:00 Temperature 97.9 F Pulse Rate 88 Respiratory Rate 18 Blood Pressure 158/79 H Pulse Oximetry 98 Oxygen Flow Rate 0 Oxygen Delivery Method Room Air Oxygen Flow Rate 0 Narrative Exam Narrative: General: alert, pleasant, NAD EXT: decrease in macular erthema of left leg, dec in edema of leg, lower choudhary chronic venous stasis skin changes unchanged Objective Labs 11/06/22 07:00 11/06/22 07:00 Labs: Laboratory Results - last 24 hr 11/05/22 11/06/22 11/06/22 05:59 07:00 07:00 WBC 4.5 RBC 3.18 L Hgb 11.1 L Hct 32.3 L MCV 101.4 H MCH 34.8 H MCHC 34.4 RDW 12.9 Plt Count 104 L Neut % (Auto) 71.6 Lymph % (Auto) 14.0 L [place] % (Auto) 12.5 Eos % (Auto) 1.5 L Baso % (Auto) 0.4 Neut # (Auto) 3200 Lymph # (Auto) 600 L [place] # (Auto) 600 Eos # (Auto) 100 Baso # (Auto) 0 Sodium 131 L Potassium 3.8 Chloride 102 Carbon Dioxide 21 L BUN 17 Creatinine 0.69 Estimated GFR > 60 BUN/Creatinine Ratio 24.6 H Glucose 195 H Hemoglobin A1c 9.7 H Calcium 8.2 L Magnesium 1.9 Vancomycin Trough 11/06/22 07:00 WBC RBC Hgb Hct MCV MCH MCHC RDW Plt Count Neut % (Auto) Lymph % (Auto) [place] % (Auto) Eos % (Auto) Baso % (Auto) Neut # (Auto) Lymph # (Auto) [place] # (Auto) Eos # (Auto) Baso # (Auto) Sodium Potassium Chloride Carbon Dioxide BUN Creatinine Estimated GFR BUN/Creatinine Ratio Glucose Hemoglobin A1c Calcium Magnesium Vancomycin Trough 19.6 PFSH Medical History Alcoholism Diabetes type 2, uncontrolled Fibromyalgia Osteoarthritis Surgical History History of bunionectomy History of History of hand surgery Family History Mother Ischemia Alcoholism Aunt Diabetes mellitus Grandfather Stroke Grandmother Dementia Social History household members: significant other and children Smoking Status: Current some day smoker alcohol intake: current Assessment & Plan Assessment & Plan narrative: 1. Cellulitis left lower extremity, improving -patient not septic on admission -CT shows no evidence of gas on imaging -as she is diabetic started broadly on vancomycin and cefepime -pt needs 1 more day IV abx then send home on oral tomorrow, Thursday consider doxy) -(she had been on cephalexin and Bactrim back in August from [facility]) 2. Hyponatremia, hypokalemia, hypomagnesemia, resolved -suspect secondary chronic etoh abuse -sodium not improved with NS -changed fluid restriction to 1500 cc daily as patient unable to tolerate 1000 mL -continue oral potassium repletion as needed -IV Mag sulfate as needed 3. Transaminitis -etiology possible secondary to etoh abuse vs steatosis -trend lfts, if rising may need further workup as inpatient -otherwise will need follow up with PCP 4. Type 2 Diabetes not on insulin -hold oral meds -ordered for insulin sliding scale -Lantus 15 units daily added in hospital -A1c 9.7 5. Hypertension -continue metoprolol -restarted amlodipine 6. Chronic pain -tylenol and oxycodone prn (hospital only) for acute left leg pain 7. Alcohol abuse -feeling withdrawal symptoms on admission -place on CIWA protocol with ativan, last CIWA 0 -ordered MVI, thiamine, folate -counseled on EtOH cessation 8. Chronic lower leg wound and venous stasis -pt was referred to Wound Care in [place] by PCP for venous stasis Time Spent With Patient Critical Care time: I spent a total of [] minutes of critical care time on this patient's care today; this time is exclusive of procedural time. Quality VTE Deep Vein Thrombosis/Pulmonary Embolism Present on Admission: No
[2022-11-06] MEDS: AMLODIPINE 5 MG TABLET 10 MG PO (13:20)
[2022-11-06] MEDS: VANCOMYCIN 1,000 MG/200 ML PIGGYBACK 200 MG IV (16:09)
[2022-11-06 20:02] VITALS: BP 143/69; PULSE 83; RESP 20; TEMP 37.1; O2SAT 97
[2022-11-06] MEDS: LORazepam 1 MG TABLET PO (20:11)
[2022-11-07] MEDS: VANCOMYCIN 1,000 MG/200 ML PIGGYBACK 200 MG IV ×3 (01:10→16:13)
[2022-11-07 01:48] VITALS: BP 144/70; PULSE 70; RESP 16
[2022-11-07] MEDS: CEFEPIME 2 GM in SODIUM CHLORIDE 0.9% 100 ML IV ×2 (05:58→18:04)
[2022-11-07] MEDS: OXYCODONE IR 5 MG TABLET PO ×4 (06:25→21:22)
[2022-11-07 07:00] VITALS: BP 138/54; PULSE 85; RESP 16; TEMP 36.3; O2SAT 98
[2022-11-07] MEDS: FOLIC ACID 1 MG TABLET PO (10:00)
[2022-11-07] MEDS: AMLODIPINE 5 MG TABLET 10 MG PO (10:00)
[2022-11-07] MEDS: METOPROLOL IR 25 MG TABLET PO ×2 (10:00→21:22)
[2022-11-07] MEDS: ENOXAPARIN 40 MG/0.4 ML SYRINGE SUBCUT ×2 (10:00→21:22)
[2022-11-07] MEDS: MULTIVITAMIN 1 TABLET 1 TAB PO (10:00)
[2022-11-07] MEDS: THIAMINE 100 MG in SODIUM CHLORIDE 0.9% 100 ML 404 MG IV (10:05)
[2022-11-07] MEDS: ACETAMINOPHEN 325 MG TABLET 650 MG PO ×3 (10:12→21:34)
[2022-11-07] MEDS: LIDOCAINE PATCH 1 EACH ADH..PATCH TOP (10:16)
[2022-11-07] MEDS: INSULIN GLARGINE 100 UNIT/ML 3ML PEN 15 UNIT SUBCUT (10:29)
[2022-11-07] MEDS: INSULIN LISPRO 100 UNIT/ML 3ML VIAL SUBCUT ×4 (10:32→21:35)
--- NOTE | 2022-11-07 10:42 | PM.PN.1 ---
Subjective Subjective Interval history: Leg still very red and painful in upper thigh. No chest pain or dyspnea. No withdrawal symptoms. Exam Vital Signs (past 8 hours): Oxygen Delivery Method Room Air Oxygen Flow Rate 0 Narrative Exam Narrative: General: alert, pleasant, NAD Lungs clear, normal effort. Heart is regular, without murmur Distended, and soft. EXT: decrease in macular erthema of left lower leg, she still has a fair amount of erythema and tenderness in the upper thigh as well as pustular rash thigh. Objective Labs 11/06/22 07:00 11/06/22 07:00 [facility] Medical History Alcoholism Diabetes type 2, uncontrolled Fibromyalgia Osteoarthritis Surgical History History of bunionectomy History of History of hand surgery Family History Mother Ischemia Alcoholism Aunt Diabetes mellitus Grandfather Stroke Grandmother Dementia Social History household members: significant other and children Smoking Status: Current some day smoker alcohol intake: current Assessment & Plan Assessment & Plan narrative: [address] [address] Progress Note Patient: Lori Aleman MR#: [id number] : 1970 Acct:[id number] Age/Sex: 52 / F ? Date of Service: 11/04/22 Provider:Ludwig Denton MD Subjective Subjective Date Patient Seen: 11/06/22 Interval history: 52W with PMH Type 2 diabetes, EtOH abuse,?chronic pain admitted due to severe left lower extremity cellulitis. Pt notes improvement in leg pain and appearance of cellulitis. Exam Vital Signs (past 8 hours): - ? 11/06/2308:00 Temperature 97.9 F Pulse Rate 88 Respiratory Rate 18 Blood Pressure 158/79 H Pulse Oximetry 98 Oxygen Flow Rate 0 Oxygen Delivery Method? Room Air? Oxygen Flow Rate? 0 ? Narrative Exam Narrative: General: alert, pleasant, NAD EXT: decrease in macular erthema of left leg, dec in edema of leg, lower choudhary chronic venous stasis skin changes unchanged Objective Labs 11/06/22 07:00? 11/06/22 07:00? Labs: Laboratory Results - last 24 hr ? 11/05/22 11/06/22 11/06/22 ? 05:59 07:00 07:00 WBC ? ?4.5 ? RBC ? ?3.18 L ? Hgb ? ?11.1 L ? Hct ? ?32.3 L ? MCV ? ?101.4 H ? MCH ? ?34.8 H ? MCHC ? ?34.4 ? RDW ? ?12.9 ? Plt Count ? ?104 L ? Neut % (Auto) ? ?71.6 ? Lymph % (Auto) ? ?14.0 L ? Gibson % (Auto) ? ?12.5 ? Eos % (Auto) ? ?1.5 L ? Baso % (Auto) ? ?0.4 ? Neut # (Auto) ? ?3200 ? Lymph # (Auto) ? ?600 L ? Gibson # (Auto) ? ?600 ? Eos # (Auto) ? ?100 ? Baso # (Auto) ? ?0 ? Sodium ? ? ?131 L Potassium ? ? ?3.8 Chloride ? ? ?102 Carbon Dioxide ? ? ?21 L BUN ? ? ?17 Creatinine ? ? ?0.69 Estimated GFR ? ? ?> 60 BUN/Creatinine Ratio ? ? ?24.6 H Glucose ? ? ?195 H Hemoglobin A1c ?9.7 H ? ? Calcium ? ? ?8.2 L Magnesium ? ? ?1.9 Vancomycin Trough ? 11/06/22 ? 07:00 WBC ? RBC ? Hgb ? Hct ? MCV ? MCH ? MCHC ? RDW ? Plt Count ? Neut % (Auto) ? Lymph % (Auto) ? Gibson % (Auto) ? Eos % (Auto) ? Baso % (Auto) ? Neut # (Auto) ? Lymph # (Auto) ? Gibson # (Auto) ? Eos # (Auto) ? Baso # (Auto) ? Sodium ? Potassium ? Chloride ? Carbon Dioxide ? BUN ? Creatinine ? Estimated GFR ? BUN/Creatinine Ratio ? Glucose ? Hemoglobin A1c ? Calcium ? Magnesium ? Vancomycin Trough ?19.6 PFSH Medical History? Alcoholism Diabetes type 2, uncontrolled Fibromyalgia Osteoarthritis Surgical History? History of bunionectomy History of History of hand surgery Family History? Mother Ischemia AlcoholismAunt Diabetes mellitusGrandfather StrokeGrandmother Dementia Social History? household members:? significant other and children Smoking Status:? Current some day smoker alcohol intake:? current Assessment & Plan Assessment & Plan narrative: 1. Cellulitis left lower extremity, present on admission and improving. -patient not septic on admission -CT shows no evidence of gas on imaging -as she is diabetic started broadly on vancomycin and cefepime -pt needs 1 more day IV abx then send home on oral tomorrow, Thursday consider doxy) -(she had been on cephalexin and Bactrim back in August from [facility]) -the upper thighs still quite reddened tender, will extend IV antibiotics for another 24 hours to at least November 08. 2. Hyponatremia, hypokalemia, hypomagnesemia, present on admission and resolved. -suspect secondary chronic etoh abuse -sodium not improved with NS -changed fluid restriction to 1500 cc daily as patient unable to tolerate 1000 mL -continue oral potassium repletion as needed -IV Mag sulfate as needed 3. Transaminitis, present on admission and stable. -etiology possible secondary to etoh abuse vs steatosis -trend lfts, if rising may need further workup as inpatient -otherwise will need follow up with PCP 4. Type 2 Diabetes not on insulin, present on admission and stable. -hold oral meds -ordered for insulin sliding scale -Lantus 15 units daily added in hospital -A1c 9.7 5. Hypertension, present on admission and stable. -continue metoprolol -restarted amlodipine 6. Chronic pain, present on admission and stable. -tylenol and oxycodone prn (hospital only) for acute left leg pain 7. Alcohol abuse, present on admission and improving. -feeling withdrawal symptoms on admission -place on CIWA protocol with ativan, last CIWA 0 -ordered MVI, thiamine, folate -counseled on EtOH cessation -it is her goal to maintain sobriety. 8. Chronic lower leg wound and venous stasis, present on admission and active. -pt was referred to Wound Care in [place] by PCP for venous stasis 9. Morbid obesity, present on admission and active. Quality VTE Deep Vein Thrombosis/Pulmonary Embolism Present on Admission: No
[2022-11-07] MEDS: INSULIN GLARGINE 100 UNIT/ML 3ML PEN SUBCUT (16:11)
[2022-11-07] MEDS: VANCOMYCIN TROUGH 1 REQUEST MISC (16:30)
[2022-11-07 16:32] LABS: Vancomycin Trough 22.3 ug/mL (10-20)
[2022-11-07 19:35] VITALS: BP 131/60; PULSE 74; RESP 18; TEMP 36.5; O2SAT 97
[2022-11-07] MEDS: VANCOMYCIN 1,500 MG/300 ML PIGGYBACK 200 MG IV (23:59)
[2022-11-08] MEDS: CEFEPIME 2 GM in SODIUM CHLORIDE 0.9% 100 ML IV (05:57)
[2022-11-08] MEDS: OXYCODONE IR 5 MG TABLET PO ×5 (06:06→22:20)
[2022-11-08] MEDS: ACETAMINOPHEN 325 MG TABLET 650 MG PO ×3 (06:06→22:20)
[2022-11-08 07:00] VITALS: BP 144/86; PULSE 74; RESP 18; TEMP 36.4; O2SAT 97
[2022-11-08] MEDS: LIDOCAINE PATCH 1 EACH ADH..PATCH TOP (08:15)
[2022-11-08] MEDS: AMLODIPINE 5 MG TABLET 10 MG PO (08:15)
[2022-11-08] MEDS: ENOXAPARIN 40 MG/0.4 ML SYRINGE SUBCUT ×2 (08:15→20:56)
[2022-11-08] MEDS: FOLIC ACID 1 MG TABLET PO (08:15)
[2022-11-08] MEDS: MULTIVITAMIN 1 TABLET 1 TAB PO (08:16)
[2022-11-08] MEDS: METOPROLOL IR 25 MG TABLET PO ×2 (08:16→20:55)
[2022-11-08] MEDS: THIAMINE 100 MG in SODIUM CHLORIDE 0.9% 100 ML 404 MG IV (08:16)
[2022-11-08] MEDS: INSULIN LISPRO 100 UNIT/ML 3ML VIAL SUBCUT ×4 (08:17→21:03)
[2022-11-08] MEDS: INSULIN GLARGINE 100 UNIT/ML 3ML PEN 20 UNIT SUBCUT (08:17)
[2022-11-08] MEDS: PREGABALIN 50 MG CAPSULE PO ×2 (10:26→20:55)
[2022-11-08] MEDS: DOXYCYCLINE HYCLATE 100 MG TABLET PO ×2 (10:26→20:55)
[2022-11-08] MEDS: CEFDINIR 300 MG CAPSULE PO ×2 (10:26→20:55)
--- NOTE | 2022-11-08 10:47 | CM.DPNOTE ---
Discharge Planning Notes: Per hospitalist, he will convert patient to oral antibiotics and most likely discharge tomorrow. Patient is amenable for discharge and will call to let him know for a noon pickup tomorrow. Plan: DC tomorrow per MD if stable, return home to care of spouse. Caryl Pina RN/DCP
--- NOTE | 2022-11-08 16:18 | PM.PN.1 ---
Subjective Subjective Interval history: Leg is improving today, with improved redness but still with pain though that has improved as well. No chest pain or dyspnea. No withdrawal symptoms. Exam Vital Signs (past 8 hours): Oxygen Delivery Method Room Air Oxygen Flow Rate 0 Narrative Exam Narrative: General: alert, pleasant, NAD Lungs clear, normal effort. Heart is regular, without murmur S NT ND EXT: decrease in macular erthema of left lower leg, she still has a fair amount of erythema and tenderness in the upper thigh as well as pustular rash on L thigh. Objective Labs 11/06/22 07:00 11/06/22 07:00 Labs: Laboratory Results - last 24 hr 11/07/22 15:50 Vancomycin Trough 22.3 H* PFSH Medical History Alcoholism Diabetes type 2, uncontrolled Fibromyalgia Osteoarthritis Surgical History History of bunionectomy History of History of hand surgery Family History Mother Ischemia Alcoholism Aunt Diabetes mellitus Grandfather Stroke Grandmother Dementia Social History household members: significant other and children Smoking Status: Current some day smoker alcohol intake: current Assessment & Plan Assessment & Plan narrative: 1. Cellulitis left lower extremity, improving -patient not septic on admission -CT shows no evidence of gas on imaging -as she is diabetic started broadly on vancomycin and cefepime, changed to oral cefdinir and doxycycline today. Will continue to see if there is improvement with transition to oral antibiotics. 2. Hyponatremia, hypokalemia, hypomagnesemia, resolved -suspect secondary chronic etoh abuse -sodium not improved with NS -changed fluid restriction to 1500 cc daily as patient unable to tolerate 1000 mL -continue oral potassium repletion as needed -IV Mag sulfate as needed -improved to 131 yesterday, will repeat again tomorrow. 3. Transaminitis -etiology possible secondary to etoh abuse vs steatosis -slight improvement in LFTs. 4. Type 2 Diabetes not on insulin -hold oral meds -ordered for insulin sliding scale -Lantus daily added in hospital -A1c 9.7 5. Hypertension -continue metoprolol -restarted amlodipine 6. Chronic pain -tylenol and oxycodone prn (hospital only) for acute left leg pain 7. Alcohol abuse -feeling withdrawal symptoms on admission -place on CIWA protocol with ativan, last CIWA 0 -ordered MVI, thiamine, folate -counseled on EtOH cessation 8. Chronic lower leg wound and venous stasis -pt was referred to Wound Care in [place] by PCP for venous stasis Time Spent With Patient Critical Care time: I spent a total of [] minutes of critical care time on this patient's care today; this time is exclusive of procedural time. Quality VTE Deep Vein Thrombosis/Pulmonary Embolism Present on Admission: No
[2022-11-08 19:25] VITALS: BP 130/63; PULSE 71; RESP 18; TEMP 36.7; O2SAT 98
[2022-11-09] MEDS: ACETAMINOPHEN 325 MG TABLET 650 MG PO ×2 (05:06→10:25)
[2022-11-09] MEDS: OXYCODONE IR 5 MG TABLET PO ×2 (05:07→10:26)
[2022-11-09 07:35] VITALS: BP 130/60; PULSE 69; RESP 17; TEMP 36.3; O2SAT 97
[2022-11-09] MEDS: INSULIN LISPRO 100 UNIT/ML 3ML VIAL SUBCUT (07:54)
[2022-11-09] MEDS: LIDOCAINE PATCH 1 EACH ADH..PATCH TOP (08:01)
[2022-11-09] MEDS: AMLODIPINE 5 MG TABLET 10 MG PO (08:01)
[2022-11-09] MEDS: FOLIC ACID 1 MG TABLET PO (08:01)
[2022-11-09] MEDS: ENOXAPARIN 40 MG/0.4 ML SYRINGE SUBCUT (08:01)
[2022-11-09] MEDS: DOXYCYCLINE HYCLATE 100 MG TABLET PO (08:01)
[2022-11-09] MEDS: METOPROLOL IR 25 MG TABLET PO (08:01)
[2022-11-09] MEDS: INSULIN GLARGINE 100 UNIT/ML 3ML PEN 20 UNIT SUBCUT (08:02)
[2022-11-09] MEDS: PREGABALIN 50 MG CAPSULE PO (08:02)
[2022-11-09] MEDS: MULTIVITAMIN 1 TABLET 1 TAB PO (08:02)
[2022-11-09] MEDS: THIAMINE 100 MG in SODIUM CHLORIDE 0.9% 100 ML 404 MG IV (08:14)
[2022-11-09] MEDS: CEFDINIR 300 MG CAPSULE PO (08:14)
[2022-11-09 08:35] LABS: Add Manual Diff / Slide Review NO; Basophils Absolute Auto 0 /uL (0-100); Basophils Percent Auto 0.9 % (0-2); Eosinophils Absolute Auto 100 /uL (0-450); Eosinophils Percent Auto 3.1 % (2-4); Hematocrit 33.1 % (36-46); Hemoglobin 11.4 g/dL (12.0-16.0); Lymphocytes Absolute Auto 800 /uL (1100-4500); Lymphocytes Percent Auto 20.1 % (25-40); Mean Corpuscular HGB Conc 34.4 % (30-36); Mean Corpuscular Hemoglobin 35.3 PG (26-34); Mean Corpuscular Volume 102.6 fL (80-100); Monocytes Absolute Auto 400 /uL (0-900); Monocytes Percent Auto 9.9 % (3-14); Neutrophils Absolute Auto 2500 /uL (1500-7000); Platelet Count 217 X10^3/uL (150-400); Red Blood Cell Count 3.22 X10^6/uL (4.0-5.2); Red Cell Distribution Width 13.3 % (11.6-14.8); White Blood Cell Count 3.9 X10^3/uL (4.5-11.0)
[2022-11-09 08:52] LABS: Blood Urea Nitrogen 11 mg/dL (7-17); Calcium 8.7 mg/dL (8.4-10.2); Carbon Dioxide 22 mmol/L (22-32); Chloride 102 mmol/L (98-107); Estimated Glomerular Filt Rate > 60 mL/min (>60); Glucose 164 mg/dL (70-100); HEMOLYSIS 28 (0-50); Potassium 3.9 mmol/L (3.4-5.1); Sodium 134 mmol/L (137-145)
--- NOTE | 2022-11-09 09:09 | P.DS_ITS ---
History of Present Illness History of Present Illness Date Patient Seen: 11/09/22 Time Patient Seen: 09:10 Chief complaint: Swelling, open wound, L leg Narrative: Per admitting provider, Ms. Castellano is a 52W with PMH Type 2 diabetes, EtOH abuse, chronic pain who presents to the hospital with left leg redness. She notes she has a lower leg wound chronically for the last year, this is quite painful. She was diagnosed with cellulitis over a year ago at another hospital. The would appears brawny and scaly. Her left leg is chronically swollen. Over the last day she has noted feeling cold. She has a minimal appetite. She has quite tender erythema above the knee on the inside of the leg. This has been demarcated. In the ED workup was done, vitals notable for afebrile, heart rate in the 80s, o2 sats in the 90s. Labs notable for WBC 5.7, hgb 12.0, platelets 111. Na 129, k 2.9, creatinine 0.77. Bili 2.1, AST/ALT 66/42, alk phos 165. Procal 1.9. Lactate 1.6. Lower extremity CT showed lower extremity cellulitis. She was given ant ibiotics and fluids and admitted for further treatment. SH: She drinks multiple alcohol drinks a day Discharge Providers Provider Date of admission: 11/04/22 20:56 Discharge Date: 11/09/22 Primary care physician: MASON Segal Consults: 11/04/22 22:31 Consult to Heat Curer Routine Comment: 11/04/22 22:40 Consult to Dietitian, Adult Routine Comment: Reason For Exam: diabetic on a non-diabetic diet Discharge provider: Sunny Hernandez DO Summary Hospital Course Discharge Diagnosis: 1. Cellulitis left lower extremity, improving 2. Hyponatremia, hypokalemia, hypomagnesemia, resolved 3. Transaminitis 4. Type 2 Diabetes 5. Hypertension 6. Chronic pain 7. Alcohol abuse 8. Chronic lower leg wound and venous stasis Hospital Course: This is a 52 year old female with PMH of EtOH abuse, DM2, HTN, chronic venous stasis admitted with a LLE cellulitis. She was initiated on broad antibiotics initially with gradual improvement in her cellulitis. She was transitioned to oral antibiotics with cefdinir and doxycyline with continued improvement. She will continue on oral antibiotics for another 7 days after discharge. She did not show evidence of alcohol withdrawal, but transaminitis present on admission did improve slightly and is at least in part due to a mild alcoholic hepatitis. Her electrolyte abnormalities on admission also improved with repletion. Her glucose levels were not controlled on admission, but had marked improvement on 20 units of lantus. Patient agreeable to discharge home with 20 Units of lantus at the time of discharge. Recommend PCP follow up for continued diabetes managment, and possible wound care referral for her chronic lower leg wounds and venous stasis though I do suspect with improved blood sugars these will heal much more quickly. She was restarted on her home lyrica, this can likely be increased in the coming weeks with PCP and she was given a presciption for continued leg pain with oxycodone as well. Time Spent with Patient Time spent: Greater than 30 minutes Exam Vital Signs (past 8 hours): - 11/09/22 07:35 Temperature 97.4 F L Pulse Rate 69 Respiratory Rate 17 Blood Pressure 130/60 Pulse Oximetry 97 Oxygen Flow Rate 0 Oxygen Delivery Method Room Air Oxygen Flow Rate 0 Narrative Exam Narrative: General: alert, pleasant, NAD Lungs clear, normal effort. Heart is regular, without murmur S NT ND EXT: decrease in macular erthema of left lower leg, and improved appearance of upper leg as well. Objective Labs 11/09/22 08:20 11/09/22 08:20 Labs: Laboratory Results - last 24 hr 11/09/22 11/09/22 08:20 08:20 WBC 3.9 L RBC 3.22 L Hgb 11.4 L Hct 33.1 L MCV 102.6 H MCH 35.3 H MCHC 34.4 RDW 13.3 Plt Count 217 Neut % (Auto) 66.0 Lymph % (Auto) 20.1 L Adams % (Auto) 9.9 Eos % (Auto) 3.1 Baso % (Auto) 0.9 Neut # (Auto) 2500 Lymph # (Auto) 800 L Adams # (Auto) 400 Eos # (Auto) 100 Baso # (Auto) 0 Sodium 134 L Potassium 3.9 Chloride 102 Carbon Dioxide 22 BUN 11 Creatinine 0.55 Estimated GFR > 60 BUN/Creatinine Ratio 20.0 Glucose 164 H Calcium 8.7 PFSH Medical History Alcoholism Diabetes type 2, uncontrolled Fibromyalgia Osteoarthritis Surgical History History of bunionectomy History of History of hand surgery Family History Mother Ischemia Alcoholism Aunt Diabetes mellitus Grandfather Stroke Grandmother Dementia Social History household members: significant other and children Smoking Status: Current some day smoker alcohol intake: current Discharge Plan Discharge Plan Patient Disposition: Home Provider Discharge Comment: You were admitted to the hospital with cellulitis of your legs. This improved with antibiotics, and I have sent another week of antibiotics to continue at home. Some of your medications were changed, notably started on insulin. This was also sent to the pharmacy along with a prescription for a new meter. Please follow up with your PCP as soon as possible to review hospitalization and diabetes management. Discharge orders & Medications Prescriptions: New cefdinir 300 mg Capsule 300 mg PO BID 7 Days Qty: 14 0RF doxycycline hyclate 100 mg Tablet 100 mg PO BID 7 Days Qty: 14 0RF pregabalin [Lyrica] 50 mg Capsule 50 mg PO BID 30 Days Qty: 60 0RF insulin glargine 100 unit/mL (3 mL) insulin pen 20 unit SUBCUT DAILY 60 Days Qty: 15 0RF (DME) pen needle, diabetic [Pen Needle] 31 gauge x 3/16 needle See Rx Instructions .Route Qty: 100 0RF Rx Instructions: For use with insulin pen, one daily (DME) blood-glucose meter [Truetrack Blood Glucose System] Kit See Rx Instructions .Route Qty: 1 0RF Rx Instructions: One glucometer kit (DME) Truetrack Test Strip See Rx Instructions .Route Qty: 200 0RF Rx Instructions: Test strips for glucometer, check at least twice daily oxycodone 5 mg Tablet 5 mg PO Q4HR PRN (Reason: Pain, Moderate (4-6)) 7 Days Qty: 20 0RF Continued amlodipine 10 mg Tablet 10 mg PO DAILY glimepiride 4 mg Tablet 4 mg PO DAILY metoprolol tartrate 25 mg Tablet 25 mg PO BID Follow up/Referrals: Lopez,Renuka S, [facility]GER [Primary Care Provider] - Diet/Activity/Treatments Diet: Diet as Tolerated Activity: As tolerated Visit Report/Discharge Packet Instructions: DI for Cellulitis -- Adult, Insulin Glargine (rDNA origin) Injection Stand Alone Forms: Patient Portal/API, Stroke Signs & Symptoms Discharge Data Primary Care Provider: Renuka Lopez Quality VTE Deep Vein Thrombosis/Pulmonary Embolism Present on Admission: No
--- NOTE | 2022-11-09 11:23 | CM.DPNOTE ---
Discharge Planning Note: Patient discharging now with family, to return home. Caryl Pina RN/DCP
== END 2022-11-09 11:20 | disposition home or self-care (01) | DRG 383 ==
LOC: ED 18:01 → AC 20:57
PROVIDERS: Emergency Medicine; Internal Medicine; Student in an Organized Health Care Education/Training Program; Admitting Provider Internal Medicine; Emergency Provider Emergency Medicine; PCP Nurse Practitioner; Referring Provider Emergency Medicine; Visit Provider Internal Medicine
DX: L03.116 Cellulitis of left lower limb (principal); E87.1 Hypo-osmolality and hyponatremia; E87.6 Hypokalemia; E11.9 Type 2 diabetes mellitus without complications; I10 Essential (primary) hypertension; G89.29 Other chronic pain; E83.42 Hypomagnesemia; I87.8 Other specified disorders of veins; R74.01 Elevation of levels of liver transaminase levels; F10.10 Alcohol abuse, uncomplicated; F17.200 Nicotine dependence, unspecified, uncomplicated; S80.922A Unspecified superficial injury of left lower leg, initial encounter; X58.XXXA Exposure to other specified factors, initial encounter; Z20.822 Contact with and (suspected) exposure to COVID-19; Z79.84 Long term (current) use of oral hypoglycemic drugs
CPT/HCPCS: 36415; 73552; 73590; 73701; 80048; 80053; 80076; 80202; 82962; 83036; 83605; 83690; 83735; 84145; 85025; 85610; 85730; 87040; 87635; 93005; 93010; 96365; 96366; 96367; 96375; 99284; C9803; J0692; J1170; J1644; J1650; J1815; J1885; J2270; J2405; J3475

== ENCOUNTER 2023-09-20 07:36 | Emergency (ER) | payer OTHER, MEDICAID, SELFPAY ==
[2022-11-04 22:21] VITALS: BMI 43.8
[2023-09-20] VITALS (47 sets, daily range): BP systolic 99–148; BP diastolic 52–86; PULSE 104–124; RESP 24–53; TEMP 37.6–38.6; O2SAT 78–99; BMI 43.9
--- NOTE | 2023-09-20 07:44 | DI.RAD.S_ITS ---
PROCEDURE: XR CHEST 1V INDICATIONS: covid + with SOB TECHNIQUE: One view of the chest was acquired. COMPARISON: None. FINDINGS: Surgical changes and devices: None. Lungs and pleura: Possible small left lateral lower lung alveolar opacity. Lungs are otherwise clear. No visible effusion or pneumothorax. Mediastinum: Mediastinal contours appear normal. Heart size is normal. Bones and chest wall: No suspicious bony lesions. Overlying soft tissues appear unremarkable. IMPRESSION: Possible small left lateral lung base opacity. No significant effusion or pneumothorax. Dictated by: Tootie Nash M.D. on 09/20/2023 at 8:41 Approved by: Tootie Nash M.D. on 09/20/2023 at 8:42
--- NOTE | 2023-09-20 08:08 | ED_ITS ---
HPI - General Adult General Chief complaint: Shortness of Breath/Dyspnea Stated complaint: SOB Covid+ Time Seen by Provider: 09/20/23 07:44 Source: patient Mode of arrival: EMS Limitations: no limitations History of Present Illness HPI narrative: Patient is a 53-year-old female. History of insulin-dependent diabetes and hypertension. Arrived by EMS for evaluation of left leg redness and swelling, confusion, shortness of breath. Patient is COVID positive. Per her report she tested positive for COVID approximately 1 week ago although I do not have a specific date as the onset of her symptoms and she does not know exactly what date she was positive. She states that her shortness of breath is actually the same today is what it has been over the past week. She states that her contacted EMS this morning because of her breathing issues and redness and swelling to the left leg. She states that she has had issues with her left leg for ?5 years? her left leg is red and swollen and warm to the touch. There is a large area of eschar in the front of the leg. She has been treated for these issues in the past. She is somewhat of a poor historian. She denies chest pain but states she is generally having body aches. No abdominal pain. No vomiting. Related Data Home Medications Medication Instructions Recorded Confirmed metoprolol tartrate 25 mg tablet 25 mg PO BID 11/04/22 09/20/23 amlodipine 10 mg tablet 10 mg PO DAILY 09/20/23 09/20/23 cyclobenzaprine 10 mg tablet 10 mg PO ONCE PM 09/20/23 09/20/23 furosemide 20 mg tablet 20 mg PO DAILY 09/20/23 09/20/23 glimepiride 4 mg tablet 4 mg PO DAILY 09/20/23 09/20/23 insulin glargine 100 unit/mL (3 20 unit SUBCUT DAILY 09/20/23 09/20/23 mL) subcutaneous pen liraglutide 0.6 mg/0.1 mL (18 mg/3 1.8 mg SUBCUT DAILY 09/20/23 09/20/23 mL) subcutaneous pen injector (Victoza 3-Griffin) meloxicam 15 mg tablet 15 mg PO DAILY 09/20/23 09/20/23 pregabalin 75 mg capsule 75 mg PO 3XD 09/20/23 09/20/23 semaglutide 1 mg/dose (4 mg/3 mL) 1 mg SUBCUT QWEEK 09/20/23 09/20/23 subcutaneous pen injector (Ozempic) Previous Rx's Medication Instructions Recorded blood sugar diagnostic (Truetrack #200 ea 11/09/22 Test strips) blood-glucose meter (Truetrack #1 ea 11/09/22 Blood Glucose System kit) pen needle, diabetic 31 gauge x #100 ea 11/09/2211/06 (Pen Needle) Allergies Allergy/AdvReac Type Severity Reaction Status Date / Time No Known Drug Allergies Allergy Verified 09/20/23 10:30 Review of Systems Review of Systems ROS Unobtainable: All systems reviewed & are unremarkable except as noted in HPI and below Patient History Medical History Osteoarthritis Fibromyalgia Diabetes type 2, uncontrolled Alcoholism Surgical History History of bunionectomy History of History of hand surgery Family History Mother Ischemia Alcoholism Aunt Diabetes mellitus Grandfather Stroke Grandmother Dementia Social History household members: significant other and children Smoking Status: Current some day smoker alcohol intake: current Smoking Status: Current some day smoker alcohol intake frequency: 3 or more drinks per day Substance Use Type: marijuana Exam Initial Vital Signs Initial Vital Signs: Vital Signs Pulse Rate 121 H 09/20/23 07:44 Respiratory Rate 47 H 09/20/23 07:44 Pulse Oximetry 91 09/20/23 07:44 Const General: cooperative, acute distress and ill appearing Nutritional Appearance: overweight [facility] Head: normal to inspection and normocephalic Resp Effort & Inspection: cough, no retractions and tachypneic Auscultation: no rales, no rhonchi and no wheezes Cardio Rate: tachycardic Rhythm: regular rhythm GI Inspection: non-distended Palpation: soft and No tender Skin Other: Patient has a swollen red warm left lower extremity from her toes up to the upper thigh. Is circumferential in the lower leg but anterior on the thigh. She has a large area of eschar on the anterior choudhary. Neuro General: patient alert, patient awake and patient oriented x3 Other: Patient is alert and oriented x3 however does seem somewhat confused about her most recent medical history. Extrem Other: Swollen warm red left lower extremity Scores GCS [place] coma scale eye opening: Spontaneous [place] coma scale verbal response: Orientated [place] coma scale motor response: Obey commands [place] coma scale total score: 15 Course Orders Ordered: ED Orders 09/20/23 07:44 XR chest 1V Stat 09/20/23 07:45 EKG-12 Lead Stat RT Consult Eval and Treat Now 09/20/23 07:46 High flow/High humidity nasal NOW 09/20/23 07:50 Respiratory Panel (Film Array) Stat 09/20/23 08:20 Complete Blood Count AUTO DIFF Stat Comprehensive Metabolic Panel Stat Ketones (Beta-Hydroxybutyrate) Stat Lactate (Lactic Acid) Stat Lipase Stat Magnesium Stat NT-proBNP (BNP-Adult 18+) Stat Pathologist Review (for CBC) Stat Phosphorous Stat Procalcitonin Stat Troponin & CK Cardiac Panel Stat 09/20/23 08:30 Blood Culture Stat 09/20/23 08:48 VBG [Venous Blood Gas] Stat 09/20/23 09:17 US periph venous low extrem lt Stat Arterial Blood Gas Stat 09/20/23 09:22 COVID19 -Nasal RAPID Stat 09/20/23 09:48 Urinalysis and Microscopic Stat Urine Culture Stat 09/20/23 10:25 XR femur RT min 2V Stat XR tibia fibula LT 2V Stat 09/20/23 10:46 Troponin & CK Cardiac Panel Stat Sodium Chloride (Normal Saline 0.9%) 1,000 mls @ 125 mls/hr IV CONT KALEB Last Admin: 09/20/23 09:06 Dose: 125 mls/hr Documented By: RADHA Discontinued Medications Furosemide (Furosemide 40 Mg/4 Ml Vial) 40 mg IV NOW ONE Stop: 09/20/23 09:12 Last Admin: 09/20/23 09:31 Dose: 40 mg Documented By: RADHA Ceftriaxone Sodium 1,000 mg/ (Sodium Chloride) 100 mls @ 200 mls/hr IV NOW ONE Stop: 09/20/23 08:00 Last Infusion: 09/20/23 09:42 Dose: Infused Documented By: Admin: 09/20/23 09:12 Dose: 200 mls/hr Documented By: RADHA Remdesivir 200 mg/ Sodium (Chloride) 250 mls @ 250 mls/hr IV NOW ONE Stop: 09/20/23 09:05 Last Admin: 09/20/23 10:32 Dose: Not Given Documented By: RADHA Vancomycin HCl (Vancomycin) 1,000 mg in 200 mls @ 200 mls/hr IV NOW ONE Stop: 09/20/23 09:06 Last Infusion: 09/20/23 11:03 Dose: Infused Documented By: Admin: 09/20/23 10:00 Dose: 200 mls/hr Documented By: RADHA Acetaminophen (Ofirmev) 1,000 mg in 100 mls @ 400 mls/hr IV NOW ONE Stop: 09/20/23 08:25 Last Infusion: 09/20/23 09:30 Dose: Infused Documented By: Admin: 09/20/23 09:10 Dose: 400 mls/hr Documented By: RADHA Sodium Chloride (Normal Saline 0.9%) 1,000 mls @ 1,000 mls/hr IV BOLUS ONE Stop: 09/20/23 10:10 Last Infusion: 09/20/23 11:41 Dose: Infused Documented By: RADHA(2) Admin: 09/20/23 09:45 Dose: 1,000 mls/hr Documented By: RADHA Clindamycin Phosphate (Cleocin) 600 mg in 50 mls @ 50 mls/hr IV NOW ONE Stop: 09/20/23 11:28 Last Infusion: 09/20/23 11:36 Dose: Infused Documented By: RADHA(2) Admin: 09/20/23 10:35 Dose: 50 mls/hr Documented By: RADHA Vital Signs Vital signs: Vital Signs - 8 hr 09/20/23 07:44 09/20/23 07:46 09/20/23 07:46 Temperature Pulse Rate 121 H 121 H Respiratory Rate 47 H 42 H Blood Pressure 113/56 L Pulse Oximetry 91 98 Oxygen Delivery Method Oxygen Flow Rate 09/20/23 07:50 09/20/23 08:00 09/20/23 08:00 Temperature 99.6 F Pulse Rate 124 H 122 H 123 H Respiratory Rate 51 H 24 38 H Blood Pressure 111/56 L Pulse Oximetry 95 94 99 Oxygen Delivery Method Nasal Cannula Oxygen Flow Rate 6 09/20/23 08:01 09/20/23 08:01 09/20/23 08:10 Temperature Pulse Rate 121 H 122 H Respiratory Rate 46 H 51 H Blood Pressure 111/56 L Pulse Oximetry 78 L 98 Oxygen Delivery Method Oxygen Flow Rate 09/20/23 08:20 09/20/23 08:30 09/20/23 08:32 Temperature Pulse Rate 122 H 121 H Respiratory Rate 49 H 51 H Blood Pressure 110/52 L Pulse Oximetry 99 Oxygen Delivery Method Oxygen Flow Rate 09/20/23 08:32 09/20/23 08:40 09/20/23 08:49 Temperature Pulse Rate 121 H 123 H 122 H Respiratory Rate 48 H 53 H 30 H Blood Pressure 111/56 L Pulse Oximetry 99 90 L 99 Oxygen Delivery Method Oxygen Flow Rate 09/20/23 08:50 09/20/23 09:00 09/20/23 09:10 Temperature Pulse Rate 121 H 121 H 123 H Respiratory Rate 47 H 53 H 44 H Blood Pressure Pulse Oximetry 96 87 L 96 Oxygen Delivery Method Oxygen Flow Rate 09/20/23 09:20 09/20/23 09:21 09/20/23 09:21 Temperature Pulse Rate 120 H 120 H Respiratory Rate 53 H 46 H Blood Pressure 106/53 L Pulse Oximetry 97 93 Oxygen Delivery Method Oxygen Flow Rate 09/20/23 09:30 09/20/23 09:40 09/20/23 09:50 Temperature Pulse Rate 118 H 116 H 113 H Respiratory Rate 41 H 49 H 49 H Blood Pressure Pulse Oximetry 97 97 98 Oxygen Delivery Method Oxygen Flow Rate 09/20/23 09:54 09/20/23 09:54 09/20/23 10:00 Temperature Pulse Rate 112 H Respiratory Rate 50 H Blood Pressure 118/57 L 114/56 L Pulse Oximetry 98 Oxygen Delivery Method Oxygen Flow Rate 09/20/23 10:00 09/20/23 10:10 09/20/23 10:20 Temperature 100.2 F H Pulse Rate 113 H 111 H 109 H Respiratory Rate 43 H 48 H 44 H Blood Pressure Pulse Oximetry 97 97 96 Oxygen Delivery Method Heated High Flow Oxygen Flow Rate 45 09/20/23 10:30 09/20/23 10:30 09/20/23 10:40 Temperature 101.3 F H 101.5 F H Pulse Rate 109 H 109 H Respiratory Rate 48 H 43 H Blood Pressure 106/60 Pulse Oximetry 95 94 Oxygen Delivery Method Heated High Flow Oxygen Flow Rate 45 09/20/23 10:45 09/20/23 10:48 09/20/23 10:48 Temperature 101.5 F H 101.5 F H Pulse Rate 108 H 106 H Respiratory Rate 45 H 40 H Blood Pressure 99/56 L Pulse Oximetry 95 95 Oxygen Delivery Method Oxygen Flow Rate 09/20/23 11:00 09/20/23 11:00 09/20/23 11:15 Temperature 101.3 F H Pulse Rate 107 H Respiratory Rate 48 H Blood Pressure 107/66 107/64 Pulse Oximetry 95 Oxygen Delivery Method Oxygen Flow Rate 09/20/23 11:15 09/20/23 11:30 09/20/23 11:30 Temperature 101.1 F H 100.9 F H Pulse Rate 106 H 104 H Respiratory Rate 44 H 41 H Blood Pressure 105/58 L Pulse Oximetry 95 95 Oxygen Delivery Method Heated High Flow Oxygen Flow Rate 09/20/23 11:45 09/20/23 11:45 09/20/23 12:00 Temperature 100.6 F H Pulse Rate 104 H Respiratory Rate 49 H Blood Pressure 143/79 H 148/86 H Pulse Oximetry 95 Oxygen Delivery Method Oxygen Flow Rate 09/20/23 12:00 09/20/23 12:15 09/20/23 12:15 Temperature 100.4 F H 100.4 F H Pulse Rate 105 H 108 H Respiratory Rate 41 H 47 H Blood Pressure 115/62 Pulse Oximetry 95 95 Oxygen Delivery Method Heated High Flow Oxygen Flow Rate 45 09/20/23 12:30 09/20/23 12:30 09/20/23 12:45 Temperature 100.4 F H Pulse Rate 104 H Respiratory Rate 44 H Blood Pressure 107/57 L 111/61 Pulse Oximetry 95 Oxygen Delivery Method Oxygen Flow Rate 09/20/23 12:45 09/20/23 13:00 09/20/23 13:00 Temperature 100.2 F H 100.2 F H Pulse Rate 107 H 104 H Respiratory Rate 45 H 45 H Blood Pressure 105/58 L Pulse Oximetry 95 96 Oxygen Delivery Method Oxygen Flow Rate 09/20/23 13:14 09/20/23 13:15 09/20/23 13:15 Temperature 100.0 F H Pulse Rate 105 H 105 H Respiratory Rate 24 44 H Blood Pressure 110/57 L Pulse Oximetry 96 96 Oxygen Delivery Method Oxygen Flow Rate 09/20/23 13:30 09/20/23 13:30 09/20/23 13:45 Temperature 100.0 F H Pulse Rate 107 H Respiratory Rate 41 H Blood Pressure 108/57 L 110/60 Pulse Oximetry 95 Oxygen Delivery Method Oxygen Flow Rate 09/20/23 13:45 09/20/23 14:00 09/20/23 14:00 Temperature 100.0 F H 99.9 F H Pulse Rate 109 H 107 H Respiratory Rate 42 H 41 H Blood Pressure 104/57 L Pulse Oximetry 95 96 Oxygen Delivery Method Oxygen Flow Rate 09/20/23 14:15 09/20/23 14:15 Temperature 99.9 F H Pulse Rate 106 H Respiratory Rate 37 H Blood Pressure 115/68 Pulse Oximetry 96 Oxygen Delivery Method High Flow Nasal Cannula Oxygen Flow Rate 45 Medical Decision Making Lab Data Lab results reviewed: Yes I reviewed the patient's lab results. 09/20/23 08:20 09/20/23 08:20 Labs: Lab Results 09/20/23 09/20/23 09/20/23 Range/Units 07:50 08:20 09:17 WBC 10.1 (4.5-11.0) X10^3/uL RBC 3.60 L (4.0-5.2) X10^6/uL Hgb 11.5 L (12.0-16.0) g/dL Hct 32.8 L (36-46) % MCV 91.1 (80-100) fL MCH 31.9 (26-34) PG MCHC 35.0 (30-36) % RDW 16.3 H (11.6-14.8) % Plt Count 80 L (150-400) X10^3/uL Neut % (Auto) Not Reportable Lymph % (Auto) Not Reportable [place] % (Auto) Not Reportable Eos % (Auto) Not Reportable Baso % (Auto) Not Reportable Lymph # (Auto) Not Reportable [place] # (Auto) Not Reportable Baso # (Auto) Not Reportable Total Counted 100 Seg Neutrophils % 47.0 (38-70) % Band Neutrophils % 44.0 H (3-7) % Lymphocytes % (Manual) 2.0 L (25-45) % Monocytes % (Manual) 4.0 (2-11) % Basophils % (Manual) 1.0 (0-1) % Metamyelocytes % 2.0 H (-0) % Neutrophils # (Manual) 9191 H (6318-7276) /uL Toxic Granulation Present H Platelet Estimate Decreased on smear RBC Morphology See below Anisocytosis 1+ H ABG Sample Site Right radial ABG pH 7.45 (7.35-7.45) ABG pCO2 18.5 L* (35-45) mmHg ABG pO2 73 L (80-100) mmHg ABG HCO3 13 L (23-27) mmol/L ABG Total CO2 13 L (23-27) mmol/L ABG O2 Saturation 96 (95-100) % ABG Base Excess -11.0 L (-2-3) mmol/L FiO2 45 Sodium 130 L (137-145) mmol/L Potassium 3.0 L (3.4-5.1) mmol/L Chloride 95 L (98-107) mmol/L Carbon Dioxide 16 L (22-32) mmol/L BUN 63 H (7-17) mg/dL Creatinine 2.63 H (0.52-1.04) mg/dL Estimated GFR 21 L (>60) mL/min BUN/Creatinine Ratio 24.0 H (6-22) Glucose 106 H (70-100) mg/dL Lactate 2.3 H (0.7-2.1) mmol/L Calcium 7.4 L (8.4-10.2) mg/dL Phosphorus 5.0 H (2.5-4.5) mg/dL Magnesium 1.5 L (1.6-2.3) mg/dL Total Bilirubin 3.9 H (0.2-1.3) mg/dL AST 1397 H (14-36) IU/L ALT 873 H (<35) IU/L Alkaline Phosphatase 96 (38-126) U/L Total Creatine Kinase 66817 H (30-135) U/L Troponin I 0.119 H (0.01-0.034) ng/mL NT-Pro-B Natriuret Pep 4350 H (<125) pg/mL Total Protein 7.8 (6.3-8.2) g/dL Albumin 3.8 (3.5-5.0) g/dL Globulin 4.0 (1.7-4.1) g/dL Albumin/Globulin Ratio 1.0 (1.0-2.8) Lipase 192 (23-300) U/L Procalcitonin 43.1 H (<0.5) ng/mL Urine Color Urine Appearance Urine pH (4.5-8.0) Ur Specific [place] (1.000-1.035) Urine Protein (Negative) Urine Glucose (UA) (Negative) g/dL Urine Ketones (NEGATIVE) Urine Occult Blood (Negative) Urine Nitrate (Negative) Urine Bilirubin (NEGATIVE) Ur Bilirubin Confirm Urine Urobilinogen (0.2) E.U./dL Ur Leukocyte Esterase (NEGATIVE) Urine RBC (0-5/HPF) Urine WBC (0-5/HPF) Ur Squamous Epith Cells (0-5/HPF) Amorphous Sediment Urine Bacteria (None) RBC Casts (None) Vol Urine Centrifuged Ketones 3.03 H (<0.27) mmol/L Chlamy pneumoniae PCR Not detected (Not Detect) Adenovirus (PCR) Not detected (Not Detect) B.parapertussis DNA PCR Not detected (Not Detecte) Coronavirus OC43 (PCR) Not detected (Not Detect) Coronavirus HKU1 (PCR) Not detected (Not Detect) Coronavirus 229E (PCR) Not detected (Not Detect) SARS-CoV-2 (PCR) Not detected (Not Detecte) Coronavirus NL63 (PCR) Not detected (Not Detect) Human Metapneumovir PCR Not detected (Not Detect) Influenza Type A (PCR) Not detected (Not Detect) Influenza Type B (PCR) Not detected (Not Detect) M. pneumoniae (PCR) Not detected (Not Detect) Parainfluenza 1 (PCR) Not detected (Not Detect) Parainfluenza 2 (PCR) Not detected (Not Detect) Parainfluenza 3 (PCR) Not detected (Not Detect) Parainfluenza 4 (PCR) Not detected (Not Detect) RSV (PCR) Not detected (Not Detect) Entero/Rhino (PCR) Not detected (Not Detect) 09/20/23 09/20/23 09/20/23 Range/Units 09:22 09:48 10:46 WBC (4.5-11.0) X10^3/uL RBC (4.0-5.2) X10^6/uL Hgb (12.0-16.0) g/dL Hct (36-46) % MCV (80-100) fL MCH (26-34) PG MCHC (30-36) % RDW (11.6-14.8) % Plt Count (150-400) X10^3/uL Neut % (Auto) Lymph % (Auto) [place] % (Auto) Eos % (Auto) Baso % (Auto) Lymph # (Auto) [place] # (Auto) Baso # (Auto) Total Counted Seg Neutrophils % (38-70) % Band Neutrophils % (3-7) % Lymphocytes % (Manual) (25-45) % Monocytes % (Manual) (2-11) % Basophils % (Manual) (0-1) % Metamyelocytes % (-0) % Neutrophils # (Manual) (1189-7066) /uL Toxic Granulation Platelet Estimate RBC Morphology Anisocytosis ABG Sample Site ABG pH (7.35-7.45) ABG pCO2 (35-45) mmHg ABG pO2 (80-100) mmHg ABG HCO3 (23-27) mmol/L ABG Total CO2 (23-27) mmol/L ABG O2 Saturation (95-100) % ABG Base Excess (-2-3) mmol/L FiO2 Sodium (137-145) mmol/L Potassium (3.4-5.1) mmol/L Chloride (98-107) mmol/L Carbon Dioxide (22-32) mmol/L BUN (7-17) mg/dL Creatinine (0.52-1.04) mg/dL Estimated GFR (>60) mL/min BUN/Creatinine Ratio (6-22) Glucose (70-100) mg/dL Lactate 1.5 (0.7-2.1) mmol/L Calcium (8.4-10.2) mg/dL Phosphorus (2.5-4.5) mg/dL Magnesium (1.6-2.3) mg/dL Total Bilirubin (0.2-1.3) mg/dL AST (14-36) IU/L ALT (<35) IU/L Alkaline Phosphatase (38-126) U/L Total Creatine Kinase 42272 H (30-135) U/L Troponin I 0.091 H (0.01-0.034) ng/mL NT-Pro-B Natriuret Pep (<125) pg/mL Total Protein (6.3-8.2) g/dL Albumin (3.5-5.0) g/dL Globulin (1.7-4.1) g/dL Albumin/Globulin Ratio (1.0-2.8) Lipase (23-300) U/L Procalcitonin (<0.5) ng/mL Urine Color Yellow Urine Appearance Cloudy Urine pH 5.5 (4.5-8.0) Ur Specific [place] 1.020 (1.000-1.035) Urine Protein 3+ H (Negative) Urine Glucose (UA) Negative (Negative) g/dL Urine Ketones Trace H (NEGATIVE) Urine Occult Blood 3+ H (Negative) Urine Nitrate Positive H (Negative) Urine Bilirubin 1+ H (NEGATIVE) Ur Bilirubin Confirm Cancelled Urine Urobilinogen 1.0 (0.2) E.U./dL Ur Leukocyte Esterase Negative (NEGATIVE) Urine RBC None seen (0-5/HPF) Urine WBC 0-1/hpf (0-5/HPF) Ur Squamous Epith Cells None seen (0-5/HPF) Amorphous Sediment 2+ Urine Bacteria None seen (None) RBC Casts 1-5/lpf H (None) Vol Urine Centrifuged 10ml (spun) Ketones (<0.27) mmol/L Chlamy pneumoniae PCR (Not Detect) Adenovirus (PCR) (Not Detect) B.parapertussis DNA PCR (Not Detecte) Coronavirus OC43 (PCR) (Not Detect) Coronavirus HKU1 (PCR) (Not Detect) Coronavirus 229E (PCR) (Not Detect) SARS-CoV-2 (PCR) Negative (Not Detecte) Coronavirus NL63 (PCR) (Not Detect) Human Metapneumovir PCR (Not Detect) Influenza Type A (PCR) (Not Detect) Influenza Type B (PCR) (Not Detect) M. pneumoniae (PCR) (Not Detect) Parainfluenza 1 (PCR) (Not Detect) Parainfluenza 2 (PCR) (Not Detect) Parainfluenza 3 (PCR) (Not Detect) Parainfluenza 4 (PCR) (Not Detect) RSV (PCR) (Not Detect) Entero/Rhino (PCR) (Not Detect) Point of Care Testing Glucose POC 109 Point of care testing: Point of Care Testing Glucose POC 109 Imaging Data Chest x-ray: Radiologist's Impression: PROCEDURE: XR CHEST 1V INDICATIONS: covid + with SOB TECHNIQUE: One view of the chest was acquired. COMPARISON: None. FINDINGS: Surgical changes and devices: None. Lungs and pleura: Possible small left lateral lower lung alveolar opacity. Lungs are otherwise clear. No visible effusion or pneumothorax. Mediastinum: Mediastinal contours appear normal. Heart size is normal. Bones and chest wall: No suspicious bony lesions. Overlying soft tissues appear unremarkable. IMPRESSION: Possible small left lateral lung base opacity. No significant effusion or pneumothorax. US - DVT: Radiologist's Impression: PROCEDURE: US PERIP VENOUS LOW EXTREM LT INDICATIONS: eval for DVT TECHNIQUE: Real-time imaging, as well as color and pulse Doppler interrogation, were performed of the lower extremity deep veins from the inguinal ligament to the popliteal fossa, with documentation of the visualized calf veins. COMPARISON: [facility], , XR CHEST 1V, 09/20/2023, 7:50. FINDINGS: The common femoral, femoral, and popliteal veins are normally compressible, and free of intraluminal thrombus. Color and pulse Doppler demonstrate normal phasic intraluminal flow. There is normal augmentation response to distal compression maneuver. The calf veins are not evaluated, secondary to overlying skin wounds. IMPRESSION: No findings of lower extremity deep venous thrombosis. Extremity x-ray #1: Radiologist's Impression: PROCEDURE: XR FEMUR RT MIN 2V INDICATIONS: eval for free air TECHNIQUE: 2 views of the femur were acquired. COMPARISON: [facility], , XR TIBIA FIBULA LT 2V, 09/20/2023, 11:26. [facility], US PERIP VENOUS LOW EXTREM LT, 09/20/2023, 10:57. [facility], , XR FEMUR LT MIN 2V, 11/04/2022, 16:32. FINDINGS: Bones: No fractures or dislocations. No suspicious bony lesions. Age- appropriate bony degenerative changes are seen. Soft tissues: No free soft tissue gas can be seen. No suspicious soft tissue calcifications or masses. IMPRESSION: No soft tissue gas can be seen by plain film. ECG Data Attestation: I personally reviewed and interpreted this ECG as follows: Interpretation: Sinus tachycardia Ventricular rate 122 Normal axis Normal QRS Normal QTC No ST T wave changes Repeat EKG Sinus tachycardia Ventricular rate 106 Normal axis Normal QRS Normal QTC No ST T wave changes MDM Narrative Medical decision making narrative: Patient initially arrived short of breath with concerns of worsening COVID infection however upon arrival patient states she is actually here because of pain in her left leg. She has an obvious cellulitis to her left lower extremity. She has been negative for COVID testing x2 today. Her chest x-ray does not show any signs of pneumonia. She was found to be in acute kidney injury. CK elevated. There was no prolonged downtime. Patient was given fluids. Initially given Rocephin and remdesivir and then vancomycin was added. Patient was also given clindamycin for concerns of necrotizing fasciitis however I feel that this is less likely. There was no free air on the x-rays. Upon insertion of the Morgan approximately 400 cc of urine resulted. Her increase in creatinine maybe related to this. Blood cultures were obtained. Urine culture obtained. Patient's lactate improved with fluids. Troponin elevated. BNP elevated. Given her kidney function we can not scan her for a pulmonary embolism. She has no lower extremity DVT. We will hold on anticoagulation for now. Initially discussed the case with food service worker at [facility]. Then discussed the case with hospitalist at [facility]. Decision was made to send the patient to progressive care unit. Patient is stable for transport. Critical Care Time Critical Care Time Critical Care Time: Yes Total Critical Care Time: 90 Attestation: The high probability of a clinically significant, sudden or life threatening deterioration of the [renal, cardiovascular, respiratory] system(s) required my full and direct attention, intervention and personal management. The aggregate critical care time was [90] minutes. This time is in addition to time spent performing reported procedures but includes the following: x Data Review and interpretation [x] Patient assessment and monitoring of vital signs [x] Documentation [x] Medication orders and management Discharge Plan Departure Patient Disposition: [facility] Clinical Impression: Cellulitis, Shortness of breath, Rhabdomyolysis, Acute kidney injury, Urinary tract infection Prescriptions: No Action metoprolol tartrate 25 mg Tablet 25 mg PO BID (DME) pen needle, diabetic [Pen Needle] 31 gauge x 3/16 needle See Rx Instructions .Route Qty: 100 0RF Rx Instructions: For use with insulin pen, one daily (DME) blood-glucose meter [[employer] Blood Glucose System] Kit See Rx Instructions .Route Qty: 1 0RF Rx Instructions: One glucometer kit (DME) [employer] Test Strip See Rx Instructions .Route Qty: 200 0RF Rx Instructions: Test strips for glucometer, check at least twice daily cyclobenzaprine 10 mg tablet 10 mg PO ONCE PM meloxicam 15 mg tablet 15 mg PO DAILY amlodipine 10 mg tablet 10 mg PO DAILY glimepiride 4 mg tablet 4 mg PO DAILY furosemide 20 mg tablet 20 mg PO DAILY pregabalin 75 mg capsule 75 mg PO 3XD insulin glargine 100 unit/mL (3 mL) insulin pen 20 unit SUBCUT DAILY Victoza 3-Griffin 0.6 mg/0.1 mL (18 mg/3 mL) pen injector 1.8 mg SUBCUT DAILY Ozempic 1 mg/dose (4 mg/3 mL) pen injector 1 mg SUBCUT QWEEK Referrals: Renuka Lopez, LOAN OFFICER [Primary Care Provider] -
[2023-09-20 08:35] LABS: Add Manual Diff / Slide Review YES; Hematocrit 32.8 % (36-46); Hemoglobin 11.5 g/dL (12.0-16.0); Mean Corpuscular Hemoglobin 31.9 PG (26-34); Mean Corpuscular Volume 91.1 fL (80-100); Platelet Count 80 X10^3/uL (150-400); Red Cell Distribution Width 16.3 % (11.6-14.8); White Blood Cell Count 10.1 X10^3/uL (4.5-11.0)
[2023-09-20 08:45] LABS: Lactate (Lactic Acid) 2.3 mmol/L (0.7-2.1)
[2023-09-20 08:47] LABS: Magnesium 1.5 mg/dL (1.6-2.3)
[2023-09-20 08:48] LABS: Albumin 3.8 g/dL (3.5-5.0); Alkaline Phosphatase 96 U/L (38-126); Bilirubin Total 3.9 mg/dL (0.2-1.3); Blood Urea Nitrogen 63 mg/dL (7-17); Calcium 7.4 mg/dL (8.4-10.2); Carbon Dioxide 16 mmol/L (22-32); Chloride 95 mmol/L (98-107); Estimated Glomerular Filt Rate 21 mL/min (>60); Glucose 106 mg/dL (70-100); HEMOLYSIS < 15 (0-50); Lipase 192 U/L (23-300); Sodium 130 mmol/L (137-145); Total Protein 7.8 g/dL (6.3-8.2)
[2023-09-20 08:51] LABS: Ketones (Beta-Hydroxybutyrate) 3.03 mmol/L (<0.27)
[2023-09-20 08:54] LABS: Anisocytosis 1+; Neutrophils Absolute Manual 9191 /uL (3000-5900); Total Cells Counted 100
[2023-09-20 08:55] LABS: Platelet Estimate Decreased on smear
[2023-09-20 08:56] LABS: Toxic Granulation Present
[2023-09-20 08:58] LABS: Alanine Aminotransferase 873 IU/L (<35); Aspartate Aminotransferase 1397 IU/L (14-36)
[2023-09-20 09:00] LABS: NT-proBNP (BNP-Adult 18+) 4350 pg/mL (<125); Troponin I 0.119 ng/mL (0.01-0.034)
[2023-09-20 09:05] LABS: Procalcitonin 43.1 ng/mL (<0.5)
[2023-09-20] MEDS: SODIUM CHLORIDE 0.9% 1,000 ML 125 ML IV (09:06)
[2023-09-20 09:07] LABS: Adenovirus Not Detected (Not Detect); B. parapertussis Not Detected (Not Detecte); Bordetella pertussis Not Detected (Not Detect); Chlamydophila pneumoniae Not Detected (Not Detect); Coronavirus 229E Not Detected (Not Detect); Coronavirus HKU1 Not Detected (Not Detect); Coronavirus NL 63 Not Detected (Not Detect); Coronavirus OC43 Not Detected (Not Detect); Human Metapneumovirus Not Detected (Not Detect); Human Rhinovirus/Enterovirus Not Detected (Not Detect); Influenza A Not Detected (Not Detect); Influenza B Not Detected (Not Detect); Mycoplasma pneumoniae Not Detected (Not Detect); Parainfluenza Virus 1 Not Detected (Not Detect); Parainfluenza Virus 2 Not Detected (Not Detect); Parainfluenza Virus 3 Not Detected (Not Detect); Parainfluenza Virus 4 Not Detected (Not Detect); Respiratory Syncytial Virus Not Detected (Not Detect); SARS- CoV-2 Not Detected (Not Detecte)
[2023-09-20] MEDS: ACETAMINOPHEN IV 1,000 MG/100 ML VIAL 400 MG IV (09:10)
[2023-09-20] MEDS: cefTRIAXone 1,000 MG in SODIUM CHLORIDE 0.9% 100 ML 200 MG IV (09:12)
--- NOTE | 2023-09-20 09:17 | DI.US.S_ITS ---
PROCEDURE: US PERIPH VENOUS LOW EXTREM LT INDICATIONS: eval for DVT TECHNIQUE: Real-time imaging, as well as color and pulse Doppler interrogation, were performed of the lower extremity deep veins from the inguinal ligament to the popliteal fossa, with documentation of the visualized calf veins. COMPARISON: [facility], CR, XR CHEST 1V, 09/20/2023, 7:50. FINDINGS: The common femoral, femoral, and popliteal veins are normally compressible, and free of intraluminal thrombus. Color and pulse Doppler demonstrate normal phasic intraluminal flow. There is normal augmentation response to distal compression maneuver. The calf veins are not evaluated, secondary to overlying skin wounds. IMPRESSION: No findings of lower extremity deep venous thrombosis. Dictated by: Tommy Sanz M.D. on 09/20/2023 at 10:20 Approved by: Tommy Sanz M.D. on 09/20/2023 at 10:21
[2023-09-20 09:25] LABS: pH ABG 7.45 (7.35-7.45)
[2023-09-20 09:26] LABS: Allen Test for ABG Passed? Yes, Passed; Blood Gas Collection Site Right Radial; Fractionated Inspired Oxygen 45; HCO3 ABG 13 mmol/L (23-27); Oxygen Saturation ABG 96 % (95-100); PCO2 ABG 18.5 mmHg (35-45); PO2 ABG 73 mmHg (80-100); TCO2 ABG 13 mmol/L (23-27)
[2023-09-20 09:26] LABS: Creatine Kinase 33204 U/L (30-135)
[2023-09-20] MEDS: FUROSEMIDE 40 MG/4 ML VIAL IV (09:31)
[2023-09-20 09:40] LABS: COVID19 -Nasal RAPID Negative (Negative)
[2023-09-20] MEDS: SODIUM CHLORIDE 0.9% 1,000 ML 1000 ML IV (09:45)
[2023-09-20] MEDS: VANCOMYCIN 1,000 MG/200 ML PIGGYBACK 200 MG IV (10:00)
[2023-09-20 10:11] LABS: Reflexed Lactate in 2 Hours Y
--- NOTE | 2023-09-20 10:25 | DI.RAD.S_ITS ---
PROCEDURE: XR FEMUR RT MIN 2V INDICATIONS: eval for free air TECHNIQUE: 2 views of the femur were acquired. COMPARISON: [facility], CR, XR TIBIA FIBULA LT 2V, 09/20/2023, 11:26. [facility], , US PERIPH VENOUS LOW EXTREM LT, 09/20/2023, 10:57. [facility], CR, XR FEMUR LT MIN 2V, 11/04/2022, 16:32. FINDINGS: Bones: No fractures or dislocations. No suspicious bony lesions. Age-appropriate bony degenerative changes are seen. Soft tissues: No free soft tissue gas can be seen. No suspicious soft tissue calcifications or masses. IMPRESSION: No soft tissue gas can be seen by plain film. Dictated by: Tommy Sanz M.D. on 09/20/2023 at 11:19 Approved by: Tommy Sanz M.D. on 09/20/2023 at 11:20
--- NOTE | 2023-09-20 10:25 | DI.RAD.S_ITS ---
PROCEDURE: XR TIBIA FIBULA LT 2V INDICATIONS: eval for free air TECHNIQUE: 2 views of the tibia and fibula were acquired. COMPARISON: [facility], CR, XR FEMUR RT MIN 2V, 09/20/2023, 11:26. [facility], , US PERIPH VENOUS LOW EXTREM LT, 09/20/2023, 10:57. [facility], CR, XR TIBIA FIBULA LT 2V, 11/04/2022, 16:32. FINDINGS: Study is limited by overlying artifact. Bones: No fractures or dislocations. No suspicious bony lesions. Underlying degenerative changes are seen, particular involving the medial aspect of the knee. Soft tissues: No definite free air is seen by plain film. No suspicious soft tissue calcifications or masses. IMPRESSION: No definite free air can be seen by plain film. If it would be helpful for clinical management decision making in this patient with this given history, please consider a dedicated CT for further evaluation. Dictated by: Tommy Sanz M.D. on 09/20/2023 at 11:17 Approved by: Tommy Sanz M.D. on 09/20/2023 at 11:19
--- NOTE | 2023-09-20 10:33 | PC.NURSE ---
Pt unable to assist in medication reconciliation. Medication reconciliation completed w/ pharmacy records.
[2023-09-20] MEDS: CLINDAMYCIN 600 MG/50 ML PIGGYBACK 50 MG IV (10:35)
[2023-09-20 10:39] LABS: Color Urine UA YELLOW; Glucose Urine UA NEGATIVE (Negative); Ketones Urine UA TRACE (NEGATIVE); Leukocyte Esterase Urine UA NEGATIVE (NEGATIVE); Nitrite Urine UA POSITIVE (Negative); Occult Blood Urine UA 3+ (Negative); Protein Urine UA 3+ (Negative)
[2023-09-20 10:45] LABS: pH Urine UA 5.5 (4.5-8.0)
[2023-09-20 10:46] LABS: Appearance Urine UA Cloudy
[2023-09-20 10:48] LABS: Bilirubin Urine UA 1+ (NEGATIVE)
[2023-09-20 10:50] LABS: Urine Volume 10mL (spun)
[2023-09-20 10:51] LABS: Bacteria Urine None Seen; RBC Urine None Seen (0-5/HPF); Squamous Epithelial Cell Urine None Seen (0-5/HPF); WBC Urine 0-1/HPF (0-5/HPF)
[2023-09-20 10:52] LABS: Amorphous Sediment Urine 2+; Red Blood Cell Casts Urine 1-5/LPF
[2023-09-20 11:07] LABS: Lactate 2HR (Lactic Acid Rflx) 1.5 mmol/L (0.7-2.1)
--- NOTE | 2023-09-20 11:12 | PC.NURSE ---
assisted ADRI Sevilla in full tiera care x2.
[2023-09-20 11:20] LABS: Troponin I 0.091 ng/mL (0.01-0.034)
--- NOTE | 2023-09-20 11:24 | PC.NURSE ---
Patient requested for cell phone to be turned off. Turned off phone at this time and placed in patients bag she brought with her.
[2023-09-20 11:29] LABS: Creatine Kinase 34463 U/L (30-135)
--- NOTE | 2023-09-20 11:59 | PC.NURSE ---
Addendum entered by Melanie Jessica R.N. 09/20/23 12:23: Urine output since 1100 is 85ml. Original Note: Patient with brisk cap refill in bilateral hands, lower extremities are sluggish with greater than 3 seconds. Left lower extremity is significantly erythemic and edematous, patient states wound on leg has been present for years and was going to wound care but patient's language became garbled the more she spoke. Left leg has large eschar wound that is 6.5cm x 5 cm. Also has skin tear on upper thigh. Language is a mixed between intelligible with short answers but unintelligible when speaking longer. Patients mouth is dry, with deep grooves in tongue, lips are cracked and flaking. Offered patient mouth swab but swiftly declined with indications that it made her nauseated. Patient appears to be alert and oriented x 4 to standard questions but also appears to be confused with mumbling and answers that are difficult to understand.
--- NOTE | 2023-09-20 12:26 | PC.NURSE ---
Called [facility] @[phone] - no ICU beds at this time spoke to Radha warehouse team member [facility]: [facility] @[phone] - unsure at this time [facility] Spence @1056 - no ICU beds all campuses over capacity Meg Yanet Rene @[phone] - Maybe 11:40 calls back [address] to Dr. Copeland. [phone] accepts.
--- NOTE | 2023-09-20 20:11 | PC.NURSE ---
Lab called w/ positive blood cultures (gram positive in all four bottles). Requested PCR which will be completed this evening. When complete will fax to where pt was transferred.
[2023-09-20 20:55] LABS: Acinetobacter calcoa-baumannii Not Detected (Not Detect); Bacteroides fragilis Not Detected (Not Detect); Candida albicans Not Detected (Not Detect); Candida auris Not Detected (Not Detect); Candida glabrata Not Detected (Not Detect); Candida krusei Not Detected (Not Detect); Candida parapsilosis Not Detected (Not Detect); Candida tropicalis Not Detected (Not Detect); Cryptococcus neoformans/gatti Not Detected (Not Detect); Enterobacter cloacae complex Not Detected (Not Detect); Enterobacterales Not Detected (Not Detect); Enterococcus faecalis Not Detected (Not Detect); Enterococcus faecium Not Detected (Not Detect); Haemophilus influenzae Not Detected (Not Detect); Klebsiella aerogenes Not Detected (Not Detect); Listeria monocytogenes Not Detected (Not Detect); Neisseria meningitidis Not Detected (Not Detect); Proteus species Not Detected (Not Detect); Pseudomonas aeruginosa Not Detected (Not Detect); Salmonella species Not Detected (Not Detect); Serratia marcescens Not Detected (Not Detect); Staphylococcus epidermidis Not Detected (Not Detect); Staphylococcus lugdunensis Not Detected (Not Detect); Staphylococcus species Not Detected (Not Detect); Stenotrophomonas maltophilia Not Detected (Not Detect); Streptococcus agalactiae (Gr B Not Detected (Not Detect); Streptococcus pneumonia Not Detected (Not Detect); Streptococcus pyogenes (Gr A) Not Detected (Not Detect); Streptococcus species Detected (Not Detect)
== END 2023-09-20 15:56 | disposition short-term general hospital (02) ==
PROVIDERS: Emergency Provider Emergency Medicine; PCP Nurse Practitioner
DX: L03.116 Cellulitis of left lower limb (principal); R06.02 Shortness of breath; M62.82 Rhabdomyolysis; N17.9 Acute kidney failure, unspecified; N39.0 Urinary tract infection, site not specified; R00.0 Tachycardia, unspecified; Z79.899 Other long term (current) drug therapy; Z86.16 Personal history of COVID-19; Z20.822 Contact with and (suspected) exposure to COVID-19
CPT/HCPCS: 36415; 36600; 71045; 73552; 73590; 80053; 81001; 82009; 82550; 82805; 82962; 83605; 83690; 83735; 83880; 84100; 84145; 84484; 85007; 85025; 87040; 87077; 87086; 87154; 87186; 87633; 87635; 93005; 93971; 96365; 96367; 96368; 96375; 99285; 99291; 99292; J0136; J0696; J1940